=== PATIENT | male | born 1950 | race Caucasian/White ===

== ENCOUNTER 2021-10-27 12:53 | Inpatient (IN) | payer MEDICARE, BC ==
[2021-10-27] MEDS ORDERED: SODIUM CHLORIDE 0.9% 1,000 ML IV STA ×2 (14:18→16:52)
[2021-10-27] MEDS ORDERED: ONDANSETRON 4 MG/2 ML VIAL IVP STA (14:18)
[2021-10-27] MEDS ORDERED: MORPHINE SULFATE 4 MG/ML SYRINGE IVP STA (14:18)
[2021-10-27 15:05] LABS: Basophils % (A) 0 %; Eosinophils # (A) 0.1 k/uL (0-0.7); Eosinophils % (A) 1 %; HCT 42.9 % (39.0-53.0); HGB 13.9 gm/dL (13.0-17.5); Lymphocytes # (A) 0.6 k/uL (1.0-4.8); Lymphocytes % (A) 4 %; MCH 31.9 pg (25.0-35.0); MCHC 32.4 g/dL (31.0-37.0); MCV 98.5 fL (80.0-100.0); Mean Platelet Volume 7.1; Monocytes # (A) 0.3 k/uL (0-1.0); Monocytes % (A) 3 %; Neutrophils # (A) 11.9 k/uL (1.3-7.7); Neutrophils % (A) 91 %; Platelet Count 217 k/uL (150-450); RBC 4.36 m/uL (4.30-5.90); RDW 12.2 % (11.5-15.5); WBC 13.1 k/uL (3.8-10.6)
[2021-10-27 15:19] LABS: ALT 13 U/L (4-49); AST 19 U/L (17-59); African American GFR (CKD) >90 (>60 ml/min/1.73 sqM); Albumin 4.2 g/dL (3.5-5.0); Alkaline Phosphatase 61 U/L (38-126); Amylase 35 U/L (30-110); Anion Gap 6 mmol/L; Blood Urea Nitrogen 18 mg/dL (9-20); Carbon Dioxide 32 mmol/L (22-30); Chloride 96 mmol/L (98-107); Glucose 99 mg/dL (74-99); Lipase 28 U/L (23-300); Non-African American GFR(CKD) 79 (>60 ml/min/1.73 sqM); Potassium 4.1 mmol/L (3.5-5.1); Sodium 134 mmol/L (137-145); Total Bilirubin 1.1 mg/dL (0.2-1.3); Total Protein 7.5 g/dL (6.3-8.2)
[2021-10-27 15:27] LABS: INR 0.9 (<1.2); Partial Thromboplastin Time 26.2 sec (22.0-30.0); Prothrombin Time 10.2 sec (9.0-12.0)
[2021-10-27 15:27] LABS: Appearance,Urine Clear (Clear); Bilirubin,Urine Negative (Negative); Blood,Urine Trace (Negative); Color,Urine Yellow; Glucose,Urine (UA) Negative (Negative); Ketones,Urine 1+ (Negative); Leukocyte Esterase,Urine Negative (Negative); Mucus,Urine Rare /hpf; Nitrite,Urine Negative (Negative); PH, Urine 6.5 (5.0-8.0); Protein,Urine Trace (Negative); RBC,Urine 4 /hpf (0-5); Specific Gravity,Urine 1.019 (1.001-1.035); Squamous Epithelial Cell,Urine <1 /hpf (0-4); WBC,Urine 2 /hpf (0-5)
--- NOTE | 2021-10-27 16:08 | CT ---
EXAMINATION TYPE: CT abdomen pelvis w con DATE OF EXAM: 10/27/2021 COMPARISON: None HISTORY: lower anterior abdominal pain CT DLP: 761.2 mGycm Automated exposure control for dose reduction was used. CONTRAST: Performed with IV Contrast, patient injected with 100 mL of Isovue 300. Images obtained from the diaphragm to the floor of the pelvis with IV contrast. There is some interstitial infiltrate and atelectasis at the lung bases. Heart is top normal in size. No pericardial effusion. No pleural effusion. Liver and gallbladder appear intact. Spleen is intact. There is no pancreatic mass. The stomach is in tact. There is dilated small bowel loop with fluid level in the upper abdomen. Small bowel measures u p to 3.3 cm. There is no adrenal mass. Kidneys show satisfactory contrast opacification. There is no hydronephrosi s. Delayed images show normal renal excretion. Distal small bowel is not dilated. Bladder distends sm oothly. There is no inguinal hernia. No free fluid in the pelvis. No pelvic mass. There is no retrope ritoneal adenopathy. There is no mesenteric edema. No ascites or free air. No bowel obstruction. Appendix not clearly seen . No sign of thickened appendix. Lumbar vertebrae have normal alignment. There is narrowing at L4-5 and L5-S1 with spur formation. No compression fracture. The bony pelvis is intact. Hip joints are intact. IMPRESSION: Dilated proximal small bowel suggestive of partial mechanical obstruction or small bowel ileus. Trans ition point not seen.
--- NOTE | 2021-10-27 16:53 | ED ---
General Adult HPI - General Chief complaint: Abdominal Pain Stated complaint: vomiting, abd pain Time Seen by Provider: 10/27/21 14:05 Source: patient, RN notes reviewed, old records reviewed Mode of arrival: ambulatory Limitations: no limitations - History of Present Illness Initial comments: Patient is a 71-year-old male with past medical history relatively unremarkable except for hernia surgery repair presents to the emergency department complainin g of a 2 to three-day history of worsening abdominal distention and pain. States he has stopped passing gas. States he had a normal bowel movement 1-2 days ago, but nothing since. Denies any nausea or vomiting. Denies any chest pain, shortness of breath. Denies any fevers, chills, cough. States the pain is relatively diffuse. Denies any history of alcohol abuse or drug abuse. Does endorse smoking marijuana occasionally. His no other acute complaints at this time. Describes the pain as an achy, distended feeling. - Related Data Home Medications Medication Instructions Recorded Confirmed Escitalopram [Lexapro] 10 mg PO HS 10/27/21 10/27/21 Allergies Allergy/AdvReac Type Severity Reaction Status Date / Time No Known Allergies Allergy Verified 10/27/21 16:54 Review of Systems ROS Statement: Those systems with pertinent positive or pertinent negative responses have been documented in the HPI. Review of Systems: CONST: Denies fever EYES: Denies blurry vision ENT: Denies nasal congestion C/V: Denies Chest pain RESP: Denies shortness of breath GI: Endorses abdominal pain. : Denies dysuria SKIN: Denies rash. MSK: Denies joint pain. NEURO: Denies headache ROS Other: All systems not noted in ROS Statement are negative. Past Medical History Past Medical History: Hyperlipidemia History of Any Multi-Drug Resistant Organisms: None Reported Additional Past Surgical History / Comment(s): head and ache Past Psychological History: Anxiety Smoking Status: Never smoker Past Alcohol Use History: None Reported Past Drug Use History: None Reported General Exam - General Exam Comments Initial Comments: General: Presents in mild distress secondary to abdominal discomfort. HEAD: Normal with no signs of head trauma. EYES: PERRLA, EOMI, conjunctiva normal, no discharge. ENT: Hearing grossly intact, normal oropharynx. RESPIRATORY: Clear breath sounds bilaterally. No wheezes, rales, or rhonchi. C/V: Regular rate and rhythm. S1 and S2 auscultated, no edema, peripheral pulses 2+ and intact throughout ABD: Abdomen is diffusely distended. Mildly tender to palpation. No guarding. No peritoneal signs. No fluid wave. No rebound tenderness.. EXT: Normal range of motion, no obvious deformity SKIN: No rashes or lesions observed on exposed skin. NEURO: Alert and oriented 4. Limitations: no limitations Course Vital Signs 10/27/21 10/27/21 12:55 17:33 Temperature 98.1 F Pulse Rate 86 78 Respiratory 16 16 Rate Blood Pressure 144/83 125/63 O2 Sat by Pulse 96 96 Oximetry Medical Decision Making - Medical Decision Making Based on the patient's presentation and physical exam, I'm concerned for p ossible intra-abdominal process for his current symptoms, including small bowel obstruction. We will obtain CT imaging as well as abdominal laboratory studies. He'll be given analgesia and IV fluids. He was in agreement this plan. Laboratory studies were remarkable for mild leukocytosis of 13. Remainder the labs are relatively unremarkable. Lactic acid is within normal limits. CT imaging of the abdomen and pelvis reveals signs concerning for possible partial mechanical bowel obstruction or small bowel ileus. On reevaluation, I discussed with the patient regarding his findings. I consu lted Dr. Espino, who was in agreement with admission. Requested he be admitted to medicine and he'll be consulted. Would like IV fluid hydration, nausea and pain control. NG tube will be placed in put on low intermittent suction. I discussed this with the patient and he was in agreement this plan. I discussed the case with the patient's admitting physician, Dr. Rosa who accepted the patient. Patient was made nothing by mouth.NG tube will be placed by nursing. - Lab Data Result diagrams: 10/27/21 14:57 10/27/21 14:57 Lab Results 10/27/21 10/27/21 10/27/21 Range/Units 14:57 14:57 14:57 WBC 13.1 H (3.8-10.6) k/uL RBC 4.36 (4.30-5.90) m/uL Hgb 13.9 (13.0-17.5) gm/dL Hct 42.9 (39.0-53.0) % MCV 98.5 (80.0-100.0) fL MCH 31.9 (25.0-35.0) pg MCHC 32.4 (31.0-37.0) g/dL RDW 12.2 (11.5-15.5) % Plt Count 217 (150-450) k/uL MPV 7.1 Neutrophils % 91 % Lymphocytes % 4 % Monocytes % 3 % Eosinophils % 1 % Basophils % 0 % Neutrophils # 11.9 H (1.3-7.7) k/uL Lymphocytes # 0.6 L (1.0-4.8) k/uL Monocytes # 0.3 (0-1.0) k/uL Eosinophils # 0.1 (0-0.7) k/uL Basophils # 0.0 (0-0.2) k/uL PT 10.2 (9.0-12.0) sec INR 0.9 (<1.2) APTT 26.2 (22.0-30.0) sec Sodium 134 L (137-145) mmol/L Potassium 4.1 (3.5-5.1) mmol/L Chloride 96 L (98-107) mmol/L Carbon Dioxide 32 H (22-30) mmol/L Anion Gap 6 mmol/L BUN 18 (9-20) mg/dL Creatinine 0.96 (0.66-1.25) mg/dL Est GFR (CKD-EPI)AfAm >90 (>60 ml/min/1.73 sqM) Est GFR (CKD-EPI)NonAf 79 (>60 ml/min/1.73 sqM) Glucose 99 (74-99) mg/dL Plasma Lactic Acid David (0.7-2.0) mmol/L Calcium 9.0 (8.4-10.2) mg/dL Total Bilirubin 1.1 (0.2-1.3) mg/dL AST 19 (17-59) U/L ALT 13 (4-49) U/L Alkaline Phosphatase 61 (38-126) U/L Total Protein 7.5 (6.3-8.2) g/dL Albumin 4.2 (3.5-5.0) g/dL Amylase 35 (30-110) U/L Lipase 28 (23-300) U/L Urine Color Urine Appearance (Clear) Urine pH (5.0-8.0) Ur Specific [place] (1.001-1.035) Urine Protein (Negative) Urine Glucose (UA) (Negative) Urine Ketones (Negative) Urine Blood (Negative) Urine Nitrite (Negative) Urine Bilirubin (Negative) Urine Urobilinogen (<2.0) mg/dL Ur Leukocyte Esterase (Negative) Urine RBC (0-5) /hpf Urine WBC (0-5) /hpf Ur Squamous Epith Cells (0-4) /hpf Urine Mucus (None) /hpf 10/27/21 10/27/21 Range/Units 14:57 15:08 WBC (3.8-10.6) k/uL RBC (4.30-5.90) m/uL Hgb (13.0-17.5) gm/dL Hct (39.0-53.0) % MCV (80.0-100.0) fL MCH (25.0-35.0) pg MCHC (31.0-37.0) g/dL RDW (11.5-15.5) % Plt Count (150-450) k/uL MPV Neutrophils % % Lymphocytes % % Monocytes % % Eosinophils % % Basophils % % Neutrophils # (1.3-7.7) k/uL Lymphocytes # (1.0-4.8) k/uL Monocytes # (0-1.0) k/uL Eosinophils # (0-0.7) k/uL Basophils # (0-0.2) k/uL PT (9.0-12.0) sec INR (<1.2) APTT (22.0-30.0) sec Sodium (137-145) mmol/L Potassium (3.5-5.1) mmol/L Chloride (98-107) mmol/L Carbon Dioxide (22-30) mmol/L Anion Gap mmol/L BUN (9-20) mg/dL Creatinine (0.66-1.25) mg/dL Est GFR (CKD-EPI)AfAm (>60 ml/min/1.73 sqM) Est GFR (CKD-EPI)NonAf (>60 ml/min/1.73 sqM) Glucose (74-99) mg/dL Plasma Lactic Acid David 0.9 (0.7-2.0) mmol/L Calcium (8.4-10.2) mg/dL Total Bilirubin (0.2-1.3) mg/dL AST (17-59) U/L ALT (4-49) U/L Alkaline Phosphatase (38-126) U/L Total Protein (6.3-8.2) g/dL Albumin (3.5-5.0) g/dL Amylase (30-110) U/L Lipase (23-300) U/L Urine Color Yellow Urine Appearance Clear (Clear) Urine pH 6.5 (5.0-8.0) Ur Specific [place] 1.019 (1.001-1.035) Urine Protein Trace H (Negative) Urine Glucose (UA) Negative (Negative) Urine Ketones 1+ H (Negative) Urine Blood Trace H (Negative) Urine Nitrite Negative (Negative) Urine Bilirubin Negative (Negative) Urine Urobilinogen 2.0 (<2.0) mg/dL Ur Leukocyte Esterase Negative (Negative) Urine RBC 4 (0-5) /hpf Urine WBC 2 (0-5) /hpf Ur Squamous Epith Cells <1 (0-4) /hpf Urine Mucus Rare H (None) /hpf Disposition Clinical Impression: Small bowel obstruction Disposition: ADMITTED IP TO THIS [facility] Condition: Stable Referrals: Kartik Rosa MD [Primary Care Provider] - 1-2 days Time of Disposition: 16:30
[2021-10-27] MEDS ORDERED: HYDROmorphone 0.5 MG/0.5 ML SYRINGE IVP STA (17:11)
[2021-10-27] MEDS ORDERED: NALOXONE 0.4 MG/ML 1 ML VIAL IV PRN (17:12)
[2021-10-27] MEDS ORDERED: ONDANSETRON 4 MG/2 ML VIAL IVP PRN (17:12)
--- NOTE | 2021-10-27 18:27 | XR ---
EXAMINATION TYPE: XR abdomen 1V DATE OF EXAM: 10/27/2021 COMPARISON: NONE HISTORY: Tube placed TECHNIQUE: 2 views supine FINDINGS: Bowel gas pattern is normal. There is no sign of free air. There is large bowel gas down to the rectum. There is nasogastric tube in the tip is at the superior gastric fundus. There is contras t in the urinary bladder and in the kidneys. IMPRESSION: Nonacute abdomen. Nasogastric tube is in the gastric fundus.
[2021-10-27] MEDS: MORPHINE SULFATE 4 MG/ML SYRINGE IV PRN (19:40)
[2021-10-27] MEDS: ESCITALOPRAM 10 MG TAB PO SCH (21:56)
[2021-10-28] MEDS: MORPHINE SULFATE 4 MG/ML SYRINGE IV PRN ×5 (00:18→21:35)
[2021-10-28] MEDS: HEPARIN SODIUM,PORCINE/PF 5,000 UNIT/0.5 ML SYRINGE SQ SCH ×4 (00:19→23:29)
[2021-10-28 09:14] LABS: Basophils # (A) 0.03 X 10*3/uL (0.00-0.10); Basophils % (A) 0.3 %; Eosinophils # (A) 0.01 X 10*3/uL (0.04-0.35); Eosinophils % (A) 0.1 %; HCT 40.2 % (39.6-50.0); HGB 12.6 g/dL (13.0-17.0); Immature Grans, Automated 0.3 %; Lymphocytes # (A) 0.64 X 10*3/uL (0.90-5.00); Lymphocytes % (A) 6.1 %; MCH 31.3 pg (27.0-32.0); MCHC 31.3 g/dL (32.0-37.0); Mean Platelet Volume 10.2 fL (9.5-12.2); Monocytes # (A) 0.51 X 10*3/uL (0.20-1.00); Monocytes % (A) 4.9 %; NRBC Per 100 WBC 0 /100 WBCS (0.0-0.0); Neutrophils # (A) 9.19 X 10*3/uL (1.80-7.70); Neutrophils % (A) 88.3 %; Platelet Count 226 X 10*3/uL (140-440); RBC 4.02 X 10*6/uL (4.40-5.60); RDW 12.7 % (11.5-14.5); WBC 10.41 X 10*3/uL (4.50-10.00)
[2021-10-28 09:17] LABS: African American GFR (CKD) 99.8 (60.0-200.0); Albumin 3.8 g/dL (3.8-4.9); Albumin/Globulin Ratio 1.46 (1.60-3.17); Anion Gap 14.3 mmol/L (10.00-18.00); BUN/Creat Ratio 15.01 Ratio (12.00-20.00); Blood Urea Nitrogen 13.1 mg/dL (9.0-27.0); Calcium 8.9 mg/dL (8.7-10.3); Carbon Dioxide 24.2 mmol/L (20.0-27.5); Globulin 2.6 g/dL (1.6-3.3); Non-African American GFR(CKD) 86.1 (60.0-200.0); Potassium 4.4 mmol/L (3.5-5.5); Total Bilirubin 0.8 mg/dL (0.30-1.20); Total Protein 6.4 g/dL (6.2-8.2)
--- NOTE | 2021-10-28 11:12 | P.HPIM ---
History of Present Illness H&P Date: 10/28/21 Chief Complaint: Abdominal pain 71-year-old male patient presented to the emergency room with worsening abdominal distention and pain over the past 2-3 days. Last bowel movement, which was normal, was noted to be 1-2 days ago and just prior to that he was having nausea and vomiting. States it's been several days since he passed gas last. Past medical history is noted be for hernia repair, otherwise unremarkable. Patient denied any blood in stool or coffee ground emesis. He doesn't denies any chest pain, pressure, shortness of breath or difficulty breathing. Initial laboratory results revealed a leukocytosis of 13.1, hemoglobin 13.9, hematocrit 42.9, platelet count 217. Chemistry reveals a sodium 134, potassium 4.1, AST 19, ELT of 13, RONAK of 18, creatinine 0.6, GFR 79, amylase 35, lipase 28. Vitals noted to be afebrile 98.1, pulse rate of 86, Strattera 16, blood pressure 144/83, maintaining oxygen saturation of 96% on room air. Review of Systems Constitutional: Reports fatigue Ears, nose, mouth and throat: Reports as per HPI Cardiovascular: Reports as per HPI Respiratory: Reports as per HPI Gastrointestinal: Reports abdominal pain, Reports bloating, Reports constipation, Reports loss of appetite, Reports nausea, Reports vomiting Genitourinary: Reports as per HPI Musculoskeletal: Reports as per HPI Integumentary: Reports as per HPI Neurological: Reports as per HPI Psychiatric: Reports as per HPI Endocrine: Reports as per HPI Hematologic/Lymphatic: Reports as per HPI Allergic/Immunologic: Reports as per HPI Past Medical History Past Medical History: Hyperlipidemia Additional Past Medical History / Comment(s): Hernia, Neck Cancer History of Any Multi-Drug Resistant Organisms: None Reported Additional Past Surgical History / Comment(s): head and ache radiation Past Psychological History: Anxiety Smoking Status: Never smoker Past Alcohol Use History: None Reported Past Drug Use History: None Reported Medications and Allergies Home Medications Medication Instructions Recorded Confirmed Type Escitalopram [Lexapro] 10 mg PO HS 10/27/21 10/27/21 History Allergies Allergy/AdvReac Type Severity Reaction Status Date / Time No Known Allergies Allergy Verified 10/27/21 16:54 Physical Exam Vitals: Vital Signs Temp Pulse Pulse Resp BP BP Pulse Ox 10/28/21 07:26 98.4 F 78 18 114/64 93 L 10/28/21 02:24 98.6 F 75 17 121/62 94 L 10/27/21 19:28 99.4 F 77 16 130/68 95 10/27/21 17:33 78 16 125/63 96 10/27/21 12:55 98.1 F 86 16 144/83 96 Intake and Output 10/27/21 10/28/21 10/28/21 22:59 06:59 14:59 Intake Total 1200 Output Total 0 Balance 1200 Intake: Intake, IV Titration 1200 Amount Sodium Chloride 0.9% 1, 1200 000 ml @ 100 mls/hr IV . Q10H STA Rx#:[id number] Output: Gastric Drainage 0 Other: Voiding Method Urinal Urinal # Voids 2 Weight 77.111 kg GENERAL: Well-appearing, well-nourished and in no acute distress. HEAD: Atraumatic, normocephalic. EYES: Pupils equal round and reactive to light, extraocular movements intact, sclera anicteric, conjunctiva are normal. ENT:nares patent, oropharynx clear without exudates. Moist mucous membranes. NECK: Normal range of motion, supple without lymphadenopathy or JVD, no thyromegaly LUNGS: Breath sounds clear to auscultation bilaterally and equal. No wheezes rales or rhonchi. HEART: Regular rate and rhythm without murmurs, rubs or gallops.S1S2 Normal ABDOMEN: Soft, mild to moderately tender to palpation in bilateral lower qu adrants, normoactive bowel sounds. No guarding, no rebound. No masses appreciated. Nasogastric tube and right [place] (clamped) EXTREMITIES: Normal range of motion, no pitting or edema. No clubbing or cyanosis. NEUROLOGICAL: Cranial nerves II through XII grossly intact. Normal speech, normal gait. PSYCH: Normal mood, normal affect. SKIN: Warm, Dry, normal turgor, no rashes or lesions noted. Results CBC & Chem 7: 10/28/21 06:07 10/28/21 06:10 Labs: Abnormal Lab Results - Last 24 Hours (Table) 10/27/21 10/27/21 10/27/21 Range/Units 14:57 14:57 15:08 WBC 13.1 H (3.8-10.6) k/uL RBC (4.40-5.60) X 10*6/uL Hgb (13.0-17.0) g/dL MCV (80.0-97.0) fL MCHC (32.0-37.0) g/dL Neutrophils # 11.9 H (1.3-7.7) k/uL Lymphocytes # 0.6 L (1.0-4.8) k/uL Eosinophils # (0.04-0.35) X 10*3/uL Sodium 134 L (137-145) mmol/L Chloride 96 L (98-107) mmol/L Carbon Dioxide 32 H (22-30) mmol/L AST (14-35) U/L Albumin/Globulin Ratio (1.60-3.17) g/dL Urine Protein Trace H (Negative) Urine Ketones 1+ H (Negative) Urine Blood Trace H (Negative) Urine Mucus Rare H (None) /hpf 10/28/21 10/28/21 Range/Units 06:07 06:10 WBC 10.41 H (3.8-10.6) k/uL RBC 4.02 L (4.40-5.60) X 10*6/uL Hgb 12.6 L (13.0-17.0) g/dL MCV 100.0 H (80.0-97.0) fL MCHC 31.3 L (32.0-37.0) g/dL Neutrophils # 9.19 H (1.3-7.7) k/uL Lymphocytes # 0.64 L (1.0-4.8) k/uL Eosinophils # 0.01 L (0.04-0.35) X 10*3/uL Sodium (137-145) mmol/L Chloride (98-107) mmol/L Carbon Dioxide (22-30) mmol/L AST 12 L (14-35) U/L Albumin/Globulin Ratio 1.46 L (1.60-3.17) g/dL Urine Protein (Negative) Urine Ketones (Negative) Urine Blood (Negative) Urine Mucus (None) /hpf Thrombosis Risk Factor Assmnt - Choose All That Apply Any of the Below Risk Factors Present?: No Other Risk Factors: Yes Each Risk Factor Represents 2 Points: Age 61-74 years Other congenital or acquired thrombophilia - If yes, enter type in comment: No Thrombosis Risk Factor Assessment Total Risk Factor Score: 2 Thrombosis Risk Factor Assessment Level: Low Risk Assessment and Plan (1) Abdominal pain Current Visit: Yes Status: Acute Code(s): R10.9 - UNSPECIFIED ABDOMINAL PAIN SNOMED Code(s): 58395146 (2) Abdominal distention Current Visit: Yes Status: Acute Code(s): R14.0 - ABDOMINAL DISTENSION (GASEOUS) SNOMED Code(s): 80703437 (3) Anxiety Current Visit: Yes Status: Acute Code(s): F41.9 - ANXIETY DISORDER, UNSPECIFIED SNOMED Code(s): 52197932 (4) Small bowel obstruction Current Visit: Yes Status: Acute Code(s): K56.609 - UNSP INTESTNL OBST, UNSP TO PARTIAL VERSUS COMPLETE OBST SNOMED Code(s): 829302100 Plan: Continue with current medications as prescribed IV maintenance fluid to be lactated Ringer's at 75 mL an hour Pain control with morphine DVT prophylaxis with pneumatic stockings and subcu heparin every 8 hours Protonix for PPI coverage Continue with NG tube for decompression of stomach We'll order labs for tomorrow We will wait for surgery recommendations We'll continue to follow closely and reassess again tomorrow Time with Patient: Greater than 30
[2021-10-28] MEDS: PANTOPRAZOLE 40 MG/10 ML VIAL IVP SCH (11:52)
[2021-10-28] MEDS: LACTATED RINGERS 1,000 ML IV SCH ×2 (11:52→23:30)
--- NOTE | 2021-10-28 14:28 | P.GSCN ---
History of Present Illness Consult date: 10/28/21 Reason for Consult: Abdominal pain, nausea and vomiting, ileus versus small bowel obstruction on CT History of present illness: Patient is a 71-year-old gentleman who presented to [facility] emergency department 10/27/2021 with chief complaint of 48 hours of progressive abdominal pain is started towards the mid abdomen and grew progressively worse in the right lower quadrant. Symptoms were accompanied by nausea and multiple bouts of nonbloody emesis. He denies associated fever or chills, no reported chest pain or shortness of breath. He hasn't had similar previous symptoms in the past. He does admit to intermittent issues with positional dizziness and lightheadedness over the past several months. No history of diabetes mellitus, he is not maintained on diuretics. 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 He suffered what was sounds like a musculoskeletal strain injury around a month ago, he admits to some searing abdominal pain associated with lifting very heavy object that's gradually impro holley. Surgical history is significant for an open left inguinal hernia repair some years ago. 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 Colonoscopy was performed somewhere around 3 years ago recalls that some manner of polyp was retrieved. A computed tomography scan of the abdomen and pelvis was obtained in the ER, images and report were reviewed. There is mild distention of the proximal small bowel, relative decompression of distal small bowel. No free air, no free fluid. There is scant stool visualized throughout the colon. No transition point is seen, appendix is not visualized. No evidence of recurrent inguinal hernia or ventral hernia. Nasogastric tube was subsequently placed and an abdominal flat plate x-ray obtained and images and report reviewed. NG tube appears to be in the gastric fundus and there is gaseous distention of the proximal colon seen at this point. Laboratory studies showed a mild leukocyto sis at 13.1 thousand which is improved to 10.4 today. Hemoglobin was 13.9, platelet count 217. MCV and MCH indices within normal limits as was RDW. Serum electrolyte analysis on presentation showed trivial hyponatremia at 134, potassium normal at 4.1, creatinine 0.96, glucose of 99. Hepatic function panel was normal and all counts including normal amylase and lipase. Urinalysis shows evidence of mild dehydration with 1+ ketones, no signs of UTI. Patient's been hemodynamically stable and afebrile overnight. He's had minimal output from the nasogastric tube since placement, today A he feels some slight improvement from his symptoms compared to presentation. He starting to experience some flatus, no bowel movement yet. Starting to feel thirsty. Has been ambulatory. His received IV fluids since admission, has not been placed on antibiotics. The lower lung bravo on CT scan did show some mild interstitial infiltrates of the lower lung bravo bilaterally but no discrete consolidation. Review of Systems All systems: negative Past Medical History Past Medical History: Hyperlipidemia Additional Past Medical History / Comment(s): Hernia, Neck Cancer History of Any Multi-Drug Resistant Organisms: None Reported Additional Past Surgical History / Comment(s): head and ache radiation Past Psychological History: Anxiety Smoking Status: Never smoker Past Alcohol Use History: None Reported Past Drug Use History: None Reported Medications and Allergies Home Medications Medication Instructions Recorded Confirmed Type Escitalopram [Lexapro] 10 mg PO HS 10/27/21 10/27/21 History Allergies Allergy/AdvReac Type Severity Reaction Status Date / Time No Known Allergies Allergy Verified 10/27/21 16:54 Surgical - Exam Osteopathic Statement: *. No significant issues noted on an osteopathic structural exam other than those noted in the History and Physical/Consult. Vital Signs Temp Pulse Resp BP Pulse Ox 98.1 F 86 16 144/83 96 10/27/21 12:55 10/27/21 12:55 10/27/21 12:55 10/27/21 12:55 10/27/21 12:55 - General well developed, well nourished, no distress - Eyes PERRL, normal ocular movement - ENT normal pinna, normal nares, normal mucosa, no hearing loss - Respiratory normal expansion, normal respiratory effort, clear to auscultation - Cardiovascular Rhythm: regular - Abdomen Abdomen is soft, there is mild distention with tympany, mild diffuse tenderness to palpation worse along the lower abdomen and right lateral abdomen. No guarding or rebound Abdomen: soft Hernia: none - Integumentary no rash, no growths - Neurologic normal coordination, normal sensation - Psychiatric oriented to time, oriented to person, oriented to place, speech is normal, memory intact Results - Labs 10/28/21 06:07 10/28/21 06:10 Abnormal Lab Results - Last 24 Hours (Table) 10/27/21 10/27/21 10/27/21 Range/Units 14:57 14:57 15:08 WBC 13.1 H (3.8-10.6) k/uL RBC (4.40-5.60) X 10*6/uL Hgb (13.0-17.0) g/dL MCV (80.0-97.0) fL MCHC (32.0-37.0) g/dL Neutrophils # 11.9 H (1.3-7.7) k/uL Lymphocytes # 0.6 L (1.0-4.8) k/uL Eosinophils # (0.04-0.35) X 10*3/uL Sodium 134 L (137-145) mmol/L Chloride 96 L (98-107) mmol/L Carbon Dioxide 32 H (22-30) mmol/L AST (14-35) U/L Albumin/Globulin Ratio (1.60-3.17) g/dL Urine Protein Trace H (Negative) Urine Ketones 1+ H (Negative) Urine Blood Trace H (Negative) Urine Mucus Rare H (None) /hpf 10/28/21 10/28/21 Range/Units 06:07 06:10 WBC 10.41 H (3.8-10.6) k/uL RBC 4.02 L (4.40-5.60) X 10*6/uL Hgb 12.6 L (13.0-17.0) g/dL MCV 100.0 H (80.0-97.0) fL MCHC 31.3 L (32.0-37.0) g/dL Neutrophils # 9.19 H (1.3-7.7) k/uL Lymphocytes # 0.64 L (1.0-4.8) k/uL Eosinophils # 0.01 L (0.04-0.35) X 10*3/uL Sodium (137-145) mmol/L Chloride (98-107) mmol/L Carbon Dioxide (22-30) mmol/L AST 12 L (14-35) U/L Albumin/Globulin Ratio 1.46 L (1.60-3.17) g/dL Urine Protein (Negative) Urine Ketones (Negative) Urine Blood (Negative) Urine Mucus (None) /hpf Diabetes panel 10/27/21 10/28/21 Range/Units 14:57 06:10 Sodium 134 L 137 (137-145) mmol/L Potassium 4.1 4.4 (3.5-5.1) mmol/L Chloride 96 L 99 (98-107) mmol/L Carbon Dioxide 32 H 24.2 (22-30) mmol/L BUN 18 13.1 (9-20) mg/dL Creatinine 0.96 0.9 (0.66-1.25) mg/dL Glucose 99 80 (74-99) mg/dL Calcium 9.0 8.9 (8.4-10.2) mg/dL AST 19 12 L (17-59) U/L ALT 13 11 (4-49) U/L Alkaline Phosphatase 61 56 (38-126) U/L Total Protein 7.5 6.4 (6.3-8.2) g/dL Albumin 4.2 3.8 (3.5-5.0) g/dL Calcium panel 10/27/21 10/28/21 Range/Units 14:57 06:10 Calcium 9.0 8.9 (8.4-10.2) mg/dL Albumin 4.2 3.8 (3.5-5.0) g/dL Pituitary panel 10/27/21 10/28/21 Range/Units 14:57 06:10 Sodium 134 L 137 (137-145) mmol/L Potassium 4.1 4.4 (3.5-5.1) mmol/L Chloride 96 L 99 (98-107) mmol/L Carbon Dioxide 32 H 24.2 (22-30) mmol/L BUN 18 13.1 (9-20) mg/dL Creatinine 0.96 0.9 (0.66-1.25) mg/dL Glucose 99 80 (74-99) mg/dL Calcium 9.0 8.9 (8.4-10.2) mg/dL Adrenal panel 10/27/21 10/28/21 Range/Units 14:57 06:10 Sodium 134 L 137 (137-145) mmol/L Potassium 4.1 4.4 (3.5-5.1) mmol/L Chloride 96 L 99 (98-107) mmol/L Carbon Dioxide 32 H 24.2 (22-30) mmol/L BUN 18 13.1 (9-20) mg/dL Creatinine 0.96 0.9 (0.66-1.25) mg/dL Glucose 99 80 (74-99) mg/dL Calcium 9.0 8.9 (8.4-10.2) mg/dL Total Bilirubin 1.1 0.80 (0.2-1.3) mg/dL AST 19 12 L (17-59) U/L ALT 13 11 (4-49) U/L Alkaline Phosphatase 61 56 (38-126) U/L Total Protein 7.5 6.4 (6.3-8.2) g/dL Albumin 4.2 3.8 (3.5-5.0) g/dL - Imaging Abdominal x-ray: report reviewed, image reviewed CT scan - abdomen: report reviewed, image reviewed CT scan - pelvis: report reviewed, image reviewed Assessment and Plan Assessment: 71-year-old gentleman with presentation consistent with either partial small bowel obstruction or more likely ileus in the setting of a degree of presenting dehydration. His symptoms have improved somewhat overnight with IV fluids. Starting to pass flatus, there was air seen in the proximal colon on his most recent abdominal imaging. His presenting symptoms could be construed as an early appendicitis but appendix was not visualized on CT and again he has shown improvement overnight with IV fluids alone, his mild leukocytosis is normalizing. History of head and neck cancer treated with chemotherapy and radiation some years ago, up-to-date with respect to screening colonoscopy. Plan: Patient's nasogastric tube isn't really yielding much in terms of output, will ask that a be advanced 5 cm, flushed with air and reconnected to suction. Continue with aspiration precautions with head of the bed at 30, ambulate 3 times a day and when necessary. Okay for ice chips today. If he shows c ontinued improvement by tomorrow morning we can think about advancing to clears and discontinuing nasogastric tube. If he shows interval decline will anticipate a repeat computed tomography scan with oral and IV contrast to assess for persistent obstruction and look closer for interval evidence of appendicitis. Time with Patient: Greater than 30
[2021-10-28] MEDS: ESCITALOPRAM 10 MG TAB PO SCH (20:53)
[2021-10-29] MEDS: MORPHINE SULFATE 4 MG/ML SYRINGE IV PRN (02:30)
[2021-10-29] MEDS: PANTOPRAZOLE 40 MG/10 ML VIAL IVP SCH (11:08)
[2021-10-29] MEDS: HEPARIN SODIUM,PORCINE/PF 5,000 UNIT/0.5 ML SYRINGE SQ SCH ×3 (11:08→23:03)
[2021-10-29] MEDS ORDERED: ACETAMINOPHEN IV (For NPO) 1,000 MG in EMPTY BAG 1 BAG IVPB PRN (11:17)
--- NOTE | 2021-10-29 11:22 | P.PN ---
Subjective Progress Note Date: 10/29/21 H&P Date: 10/28/21 Chief Complaint: Abdominal pain 71-year-old male patient presented to the emergency room with worsening abdominal distention and pain over the past 2-3 days. Last bowel movement, which was normal, was noted to be 1-2 days ago and just prior to that he was having nausea and vomiting. States it's been several days since he passed gas l ast. Past medical history is noted be for hernia repair, otherwise unremarkable. Patient denied any blood in stool or coffee ground emesis. He doesn't denies any chest pain, pressure, shortness of breath or difficulty breathing. Initial laboratory results revealed a leukocytosis of 13.1, hemoglo bin 13.9, hematocrit 42.9, platelet count 217. Chemistry reveals a sodium 134, potassium 4.1, AST 19, ELT of 13, RONAK of 18, creatinine 0.6, GFR 79, amylase 35, lipase 28. Vitals noted to be afebrile 98.1, pulse rate of 86, Strattera 16, blood pressure 144/83, maintaining oxygen saturation of 96% on room air. 10/29/2021 NG with minimal output. Tolerating ice chest with no nausea or vomiting. Passing flatus. Ambulating in hallway . Receiving morphine sulfate IV push for pain management, last received coconut jelly roller hours. Denies chest pain palpitations or shortness of breath.Maintaining O2 sats in the 90s on room air. Objective - Vital Signs Vital signs: Vital Signs Temp 98.4 F 10/29/21 02:20 Pulse 72 10/29/21 02:20 Resp 16 10/29/21 02:20 BP 165/80 10/29/21 02:20 Pulse Ox 94 L 10/29/21 02:20 Intake & Output 10/28/21 10/29/21 10/29/21 18:59 06:59 18:59 Other: Voiding Method Urinal Urinal # Voids 3 - Exam GENERAL: Alert and oriented 3, sitting up in bed, no acute distress. HEAD: Atraumatic, normocephalic. EYES: Pupils equal round and reactive to light, extraocular movements intact, sclera anicteric, conjunctiva are normal. ENT:nares patent, oropharynx clear without exudates. Moist mucous membranes.NGT present. NECK: supple, no JVD LUNGS: Breath sounds clear to auscultation bilaterally and equal. No wheezes rales or rhonchi. HEART: Regular rate and rhythm without murmurs, rubs or gallops.S1S2 Normal ABDOMEN: Soft, distended, mild diffuse tenderness, hypoactive bowel sounds. No guarding, no rebound. No masses appreciated. EXTREMITIES: Normal range of motion, no pitting or edema. No clubbing or cyanosis. NEUROLOGICAL: Cranial nerves II through XII grossly intact. Normal speech, normal gait SKIN: Warm, Dry, normal turgor, no rashes noted. - Labs CBC & Chem 7: 10/28/21 06:07 10/28/21 06:10 Assessment and Plan Assessment: Abdominal pain, Partial small bowel obstruction, possibly ileus. Dehydration Leukocytosis, improving History of neck cancer, s/p chemotherapy and radiation Anxiety Plan: Continue on current medication regime ,monitoring and symptomatic treatment. IV fluid hydration. Pain management; morphine sulfate discontinued, ofirmev ordered. GI prophylaxis with PPI, DVT prophylaxis with heparin subcu/pneumatic stockings. NG tube/diet advancement as per surgery. Increase ambulation as tolerated. Aggressive pulmonary toileting with incentive spirometer ordered. The impression and plan of care has been dictated as directed. : I performed a history and examination of this patient, discussed the same with the dictator. I agree with the dictator's note ,documented as a scribe. Any additional findings or plans will be noted.
[2021-10-29 12:58] LABS: Basophils % (A) 0 %; Eosinophils # (A) 0.1 k/uL (0-0.7); Eosinophils % (A) 2 %; HCT 38.8 % (39.0-53.0); HGB 12.4 gm/dL (13.0-17.5); Lymphocytes # (A) 0.6 k/uL (1.0-4.8); Lymphocytes % (A) 8 %; MCH 32.2 pg (25.0-35.0); MCHC 31.9 g/dL (31.0-37.0); MCV 100.9 fL (80.0-100.0); Mean Platelet Volume 8.8; Monocytes # (A) 0.4 k/uL (0-1.0); Monocytes % (A) 5 %; Neutrophils # (A) 5.9 k/uL (1.3-7.7); Neutrophils % (A) 83 %; Platelet Count 226 k/uL (150-450); RBC 3.84 m/uL (4.30-5.90); RDW 12.7 % (11.5-15.5); WBC 7.1 k/uL (3.8-10.6)
[2021-10-29 13:02] LABS: ALT 10 U/L (4-49); AST 17 U/L (17-59); African American GFR (CKD) >90 (>60 ml/min/1.73 sqM); Albumin 3.2 g/dL (3.5-5.0); Alkaline Phosphatase 58 U/L (38-126); Anion Gap 7 mmol/L; Blood Urea Nitrogen 14 mg/dL (9-20); Calcium 8.6 mg/dL (8.4-10.2); Carbon Dioxide 30 mmol/L (22-30); Chloride 97 mmol/L (98-107); Globulin 3.1 g/dL; Glucose 85 mg/dL (74-99); Non-African American GFR(CKD) 88 (>60 ml/min/1.73 sqM); Potassium 4.2 mmol/L (3.5-5.1); Sodium 134 mmol/L (137-145); Total Bilirubin 1.1 mg/dL (0.2-1.3); Total Protein 6.3 g/dL (6.3-8.2)
--- NOTE | 2021-10-29 14:47 | P.PN ---
Subjective Progress Note Date: 10/29/21 Principal diagnosis: Ileus versus partial small bowel obstruction, right lower quadrant abdominal pain Patient seen and examined at bedside. No overnight events. Feeling better t arian than yesterday. Continues with positive flatus, no bowel movement yet. Feeling hungry. Right lower quadrant pains are improving. Remained hemodynamically stable and afebrile overnight. Leukocytosis has normalized. Patient is not on antibiotics. Ambulatory without issue. Laboratory studies today are unremarkable. Objective - Vital Signs Vital signs: Vital Signs Temp 98.5 F 10/29/21 14:00 Pulse 77 10/29/21 14:00 Resp 19 10/29/21 14:00 BP 161/79 10/29/21 14:00 Pulse Ox 95 10/29/21 14:00 Intake & Output 10/28/21 10/29/21 10/29/21 18:59 06:59 18:59 Output Total 150 Balance -150 Output: Urine 150 Other: Voiding Method Urinal Urinal Urinal # Voids 3 - Constitutional General appearance: Present: average body habitus, no acute distress - EENT Eyes: Present: PERRLA ENT: Present: NA/AT - Respiratory Respiratory: bilateral: CTA - Cardiovascular Rhythm: regular - Gastrointestinal Gastrointestinal Comment(s): Abdomen is soft, nontender palpation, no guarding rebound or distention. No appreciable ventral hernia. - Neurologic Neurologic: Present: CNII-XII intact - Psychiatric Psychiatric: Present: A&O x's 3, appropriate affect, intact judgment & insight - Labs CBC & Chem 7: 10/29/21 04:56 10/29/21 04:56 Labs: Abnormal Lab Results - Last 24 Hours (Table) 10/29/21 10/29/21 Range/Units 04:56 04:56 RBC 3.84 L (4.30-5.90) m/uL Hgb 12.4 L (13.0-17.5) gm/dL Hct 38.8 L (39.0-53.0) % MCV 100.9 H (80.0-100.0) fL Lymphocytes # 0.6 L (1.0-4.8) k/uL Sodium 134 L (137-145) mmol/L Chloride 97 L (98-107) mmol/L Albumin 3.2 L (3.5-5.0) g/dL Assessment and Plan Assessment: 71-year-old gentleman with presentation consistent with either partial small bowel obstruction or more likely ileus in the setting of a degree of presenting dehydration. His symptoms have improved somewhat overnight with IV fluids. Starting to pass flatus, there was air seen in the proximal colon on his most recent abdominal imaging. Doubt appendicitis at present. History of head and neck cancer treated with chemotherapy and radiation some years ago, up-to-date with respect to screening colonoscopy. Plan: Nasogastric tube was removed at bedside, yielded some 50 mL or less since yesterday. Okay to start clear liquids today. He has continued improvement overnight and some bowel function he can be advanced to a regular diet as tolerated tomorrow. If it is interval decline will anticipate repeat CT abdomen and pelvis with oral and IV contrast. May be ready for discharge home tomorrow afternoon at the earliest. Time with Patient: Greater than 30
[2021-10-29] MEDS: ESCITALOPRAM 10 MG TAB PO SCH (23:03)
[2021-10-30] MEDS: LACTATED RINGERS 1,000 ML IV SCH ×2 (00:28→06:45)
[2021-10-30] MEDS: HEPARIN SODIUM,PORCINE/PF 5,000 UNIT/0.5 ML SYRINGE SQ SCH (08:37)
[2021-10-30] MEDS: PANTOPRAZOLE 40 MG/10 ML VIAL IVP SCH (08:37)
[2021-10-30] MEDS ORDERED: bisacodyL 10 MG SUPP RECTAL STA (12:47)
--- NOTE | 2021-10-30 12:47 | P.PN ---
Subjective Progress Note Date: 10/30/21 Principal diagnosis: Ileus versus partial small bowel obstruction, right lower quadrant abdominal pain Patient seen and examined at bedside. Feeling better today than yesterday. Admits to some mild waxing and waning nausea, has been tolerating regular diet. Right lower quadrant pains are nearly resolved. As been ambulatory, admits to flatus, no bowel movement yet but feels like it's coming. He denies fever or chills. He's been hemodynamically stable and afebrile overnight. Objective - Vital Signs Vital signs: Vital Signs Temp 98.3 F 10/30/21 08:00 Pulse 58 L 10/30/21 08:00 Resp 17 10/30/21 08:00 BP 162/84 10/30/21 08:00 Pulse Ox 96 10/30/21 08:00 Intake & Output 10/29/21 10/30/21 10/30/21 18:59 06:59 18:59 Intake Total 400 600 Output Total 350 900 Balance 50 -900 600 Intake: Intake, IV Titration 600 Amount Lactated Ringers 1,000 ml 600 @ 75 mls/hr IV .[id number] [facility] Rx#:[id number] Oral 400 Output: Urine 350 900 Other: Voiding Method Urinal Toilet Urinal - Constitutional General appearance: Present: average body habitus, no acute distress - EENT Eyes: Present: EOMI, PERRLA ENT: Present: NA/AT - Respiratory Respiratory: bilateral: CTA - Cardiovascular Rhythm: regular - Gastrointestinal Gastrointestinal Comment(s): Abdomen is soft, nontender to palpation, no guarding rebound or distention. General gastrointestinal: Present: normal bowel sounds - Neurologic Neurologic: Present: CNII-XII intact - Psychiatric Psychiatric: Present: A&O x's 3 - Labs CBC & Chem 7: 10/29/21 04:56 10/29/21 04:56 Labs: Abnormal Lab Results - Last 24 Hours (Table) 10/29/21 10/29/21 Range/Units 04:56 04:56 RBC 3.84 L (4.30-5.90) m/uL Hgb 12.4 L (13.0-17.5) gm/dL Hct 38.8 L (39.0-53.0) % MCV 100.9 H (80.0-100.0) fL Lymphocytes # 0.6 L (1.0-4.8) k/uL Sodium 134 L (137-145) mmol/L Chloride 97 L (98-107) mmol/L Albumin 3.2 L (3.5-5.0) g/dL Assessment and Plan Assessment: 71-year-old gentleman with presentation consistent with either partial small bowel obstruction or more likely ileus in the setting of a degree of presenting dehydration. Clinically resolving no no bowel movement yet. There was air seen in the proximal colon on his most recent abdominal imaging. Doubt appendicitis at present. History of head and neck cancer treated with chemotherapy and radiation some years ago, up-to-date with respect to screening colonoscopy. Plan: Dulcolax suppository this afternoon. If he continues to do well with regular diet without abdominal pain, nausea, or vomiting I think it will be okay for discharge home from a surgical standpoint by late this afternoon or early this evening. He was advised that her symptoms return after discharge home and to come back to the hospital. I suspect is presenting issue related to an ileus in the setting of acute dehydration. Time with Patient: Greater than 30
[2021-10-30 13:32] VITALS: BP 162/75; PULSE 86; RESP 16; TEMP 98.2
--- NOTE | 2021-10-30 14:20 | P.DS ---
Providers Date of admission: 10/27/21 17:12 Expected date of discharge: 10/30/21 Attending physician: Kartik Rosa Consults: 10/27/21 17:12 Consult Physician Routine Consulting Provider: Gabriel Espino Consult Reason/Comments: partial small bowel obstruction Do you want consulting provider notified?: Already Contacted Primary care physician: Kartik Rosa [place] [facility] Course: Final Diagnoses: Abdominal pain, Partial small bowel obstruction, possibly ileus. Dehydration Leukocytosis, improving History of neck cancer, s/p chemotherapy and radiation Anxiety Hospital course: This is a 71-year-old male patient presented to the emergency room with worsening abdominal distention and pain over the past 2-3 days. Last bowel movement, which was normal, was noted to be 1-2 days ago and just prior to that he was having nausea and vomiting. States it's been several days since he passed gas last. Past medical history is noted be for hernia repair, otherwise unremarkable. Patient denied any blood in stool or coffee ground emesis. He doesn't denies any chest pain, pressure, shortness of breath or difficulty breathing. Initial laboratory results revealed a leukocytosis of 13.1, hemoglobin 13.9, hematocrit 42.9, platelet count 217. Chemistry reveals a sodium 134, potassium 4.1, AST 19, ELT of 13, RONAK of 18, creatinine 0.6, GFR 79, amylase 35, lipase 28. Vitals noted to be afebrile 98.1, pulse rate of 86, Strattera 16, blood pressure 144/83, maintaining oxygen saturation of 96% on room air. 10/29/2021 NG with minimal output. Tolerating ice chest with no nausea or vomiting. Passing flatus. Ambulating in hallway . Receiving morphine sulfate IV push for pain management, last received courtesy car driver hours. Denies chest pain palpitations or shortness of breath.Maintaining O2 sats in the 90s on room air. 10/30/2021 NG discontinued yesterday, tolerating clear liquid diet with mild nausea vomiting or diarrhea. Scheduled for regular lunch. Passing flatus, no bowel movement. Ambulating, tolerating exertion well. Afebrile. Patient will be discharged home later today in a stable condition with guarded prognosis, pending tolerating advancement in diet, positive bowel movement, and final DC recommendations and clearance per surgery. - Exam GENERAL: Alert and oriented 3, sitting up in bed, no acute distress. LUNGS: Breath sounds clear to auscultation bilaterally and equal. No wheezes rales or rhonchi. HEART: Regular rate and rhythm without murmurs, rubs or gallops.S1S2 Normal ABDOMEN: Soft, distended, mild diffuse bilateral lower quadrant tenderness, hypoactive bowel sounds. No guarding, no rebound. No masses appreciated. NEUROLOGICAL: Cranial nerves II through XII grossly intact. The impression and plan of care has been dictated as directed. : I performed a history and examination of this patient, discussed the same with the dictator. I agree with the dictator's note ,documented as a scribe. Any additional findings or plans will be noted. Patient Condition at Discharge: Stable Plan - Discharge Summary Discharge Rx Participant: No New Discharge Prescriptions: New Pantoprazole Sodium [Protonix] 40 mg PO DAILY #14 tab Continue Escitalopram [Lexapro] 10 mg PO HS Discharge Medication List Escitalopram [Lexapro] 10 mg PO HS 10/27/21 [History] Pantoprazole Sodium [Protonix] 40 mg PO DAILY #14 tab 10/30/21 [Rx] Follow up Appointment(s)/Referral(s): Kartik Rosa MD [Primary Care Provider] - 11/06/21 3:00 pm Patient Instructions/Handouts: Bowel Obstruction (DC)
== END 2021-10-30 16:40 | disposition home or self-care (01) | DRG 390 ==
LOC: EC 12:53 → 4SSUR 17:12
PROVIDERS: ADMIT Family Medicine; ATTEND Family Medicine
PROC: 0D9670Z Drainage of Stomach with Drainage Device, Via Natural or Artificial Opening (ICD-10-PCS; principal; 2021-10-27)
DX: K56.7 Ileus, unspecified (principal); K56.600 Partial intestinal obstruction, unspecified as to cause; D72.829 Elevated white blood cell count, unspecified; E78.5 Hyperlipidemia, unspecified; E86.0 Dehydration; F41.9 Anxiety disorder, unspecified; Z85.89 Personal history of malignant neoplasm of other organs and systems; Z92.21 Personal history of antineoplastic chemotherapy; Z92.3 Personal history of irradiation
CPT/HCPCS: 36415; 74018; 74177; 80053; 81001; 82150; 83605; 83690; 85025; 85610; 85730; 96361; 96374; 96375; 99285

== ENCOUNTER 2022-09-22 17:47 | Inpatient (IN) | payer MEDICARE ==
[2022-09-22] MEDS ORDERED: HYDROmorphone 0.5 MG/0.5 ML SYRINGE IVP STA (18:45)
--- NOTE | 2022-09-22 18:51 | ED ---
General Adult HPI - General Chief complaint: Abdominal Pain Stated complaint: Abd Pain Time Seen by Provider: 09/22/22 18:04 Source: patient, RN notes reviewed, old records reviewed Mode of arrival: ambulatory Limitations: no limitations - History of Present Illness Initial comments: 72-year-old male presenting for evaluation of abdominal pain and distention. Patient has had several episodes of abdominal pain after surgery about 6 weeks ago. He had laparotomy for ruptured appendix. He denies fever. 3 episodes of vomiting today. He states he had a bowel movement this morning but he continues to have upper abdominal pain and distention. - Related Data Home Medications Medication Instructions Recorded Confirmed Escitalopram [Lexapro] 10 mg PO HS 10/27/21 09/22/22 Allergies Allergy/AdvReac Type Severity Reaction Status Date / Time Penicillins Allergy Unknown Verified 09/22/22 19:30 Childhood Review of Systems ROS Statement: Those systems with pertinent positive or pertinent negative responses have been documented in the HPI. ROS Other: All systems not noted in ROS Statement are negative. Past Medical History Past Medical History: Hyperlipidemia Additional Past Medical History / Comment(s): Hernia, Neck Cancer History of Any Multi-Drug Resistant Organisms: None Reported Past Surgical History: Appendectomy Additional Past Surgical History / Comment(s): head and ache radiation Past Psychological History: Anxiety Smoking Status: Never smoker Past Alcohol Use History: None Reported Past Drug Use History: None Reported General Exam Limitations: no limitations General appearance: alert, in no apparent distress Head exam: Present: atraumatic, normocephalic Eye exam: Present: normal appearance, PERRL ENT exam: Present: normal exam Neck exam: Present: normal inspection. Absent: tenderness, meningismus Respiratory exam: Present: normal lung sounds bilaterally. Absent: respiratory distress Cardiovascular Exam: Present: regular rate, normal rhythm GI/Abdominal exam: Present: soft, distended, tenderness. Absent: guarding, rebound Extremities exam: Present: normal inspection Neurological exam: Present: alert, oriented X3, CN II-XII intact. Absent: motor sensory deficit Psychiatric exam: Present: normal affect, normal mood Skin exam: Present: warm, dry, intact Course Vital Signs 09/22/22 17:55 Temperature 98.4 F Pulse Rate 90 Respiratory 18 Rate Blood Pressure 105/65 O2 Sat by Pulse 95 Oximetry Medical Decision Making - Medical Decision Making Was pt. sent in by a medical professional or institution (Dr., PA, WOODWIND INSTRUMENT REPAIRER, urgent care, hospital, or correction...) When possible be specific @ -[No] Did you speak to anyone other than the patient for history (EMS, parent, family, police, friend...)? What history was obtained from this source @ -[No] Did you review nursing and triage notes (agree or disagree)? Why? @ -[I reviewed and agree with nursing and triage notes] Were old charts reviewed (outside hosp., previous admission, EMS record, old EKG, old radiological studies, urgent care reports/EKG's, correction records)? Report findings @ -Previous surgical documentation reviewed and previous hospitalization review ed Differential Diagnosis (chest pain, altered mental status, abdominal pain women, abdominal pain men, vaginal bleeding, weakness, fever, dyspnea, syncope, headache, dizziness, GI bleed, back pain, seizure, CVA, palpatations, mental health, musculoskeletal)? @ -Differential Abdominal Pain Men: Appendicitis, cholecystitis, diverticulosis, ischemic bowel, pancreatitis, hepatitis, UTI, gastroenteritis, AAA, incarcerated hernia, bowel obstruction, constipation, inflammatory bowel, hepatitis, peptic ulcer disease, splenic infarction, perforated viscus, testicular torsion, this is not meant to be an all-inclusive list EKG interpreted by me (3pts min.). @ -[As above] X-rays interpreted by me (1pt min.). @ -[None done] CT interpreted by me (1pt min.). @ -CT of the pelvis was performed, I did review the images and agree with the radiologist's assessment a small bowel obstruction U/S interpreted by me (1pt. min.). @ -[None done] What testing was considered but not performed or refused? (CT, X-rays, U/S, labs)? Why? @ -[None] What meds were considered but not given or refused? Why? @ -[None] Did you discuss the management of the patient with other professionals (professionals i.e. ADAM Madrigal, WOODWIND INSTRUMENT REPAIRER, lab, RT, psych nurse, social services designee, community development aide, teacher, chief knowledge officer, window caser)? Give summary @ -Case discussed with the admitting physician Dr. Loya who is covering for Dr. Velazquez Was smoking cessation discussed for >3mins.? @ -[No] Was critical care preformed (if so, how long)? @ -[No] Were there social determinants of health that impacted care today? How? (Homelessness, low income, unemployed, alcoholism, drug addiction, transportation, low edu. Level, literacy, decrease access to med. care, intermediate, rehab)? @ -[No] Was there de-escalation of care discussed even if they declined (Discuss DNR or withdrawal of care, Hospice)? DNR status @ -[No] What co-morbidities impacted this encounter? (DM, HTN, Smoking, COPD, CAD, Cancer, CVA, ARF, Chemo, Hep., AIDS, mental health diagnosis, sleep apnea, morbid obesity)? @ -[None] Was patient admitted / discharged? Hospital course, mention meds given and route, prescriptions, significant lab abnormalities, going to OR and other pertinent info. @ -72-year-old male who presented with abdominal pain and distention several episodes of vomiting, concern for small bowel obstruction. Laboratory testing reveals a minimally elevated white blood cell count of 10.8, stable hemoglobin, normal electrolytes, elevated BUN/creatinine from baseline with a creatinine of 1.65. He has a CT showing small bowel obstruction. NG tube will be placed in the emergency department. The patient will be admitted for IV hydration and pain control. Undiagnosed new problem with uncertain prognosis? @ -[No] Drug Therapy requiring intensive monitoring for toxicity (Heparin, Nitro, Insulin, Cardizem)? @ -[No] Were any procedures done? @ -[No] Diagnosis/symptom? @ -[Small bowel obstruction, acute kidney injury] Acute, or Chronic, or Acute on Chronic? @ -Acute Uncomplicated (without systemic symptoms) or Complicated (systemic symptoms)? @ -Complicated Side effects of treatment? @ -[No] Exacerbation, Progression, or Severe Exacerbation? @ -[No] Poses a threat to life or bodily function? How? (Chest pain, USA, SC, pneumonia, PE, COPD, DKA, ARF, appy, cholecystitis, CVA, Diverticulitis, Homicidal, S uicidal, threat to staff... and all critical care pts) @ -Risk of bowel perforation, sepsis, multiorgan failure. - Lab Data Result diagrams: 09/22/22 18:37 09/22/22 18:37 Lab Results 09/22/22 09/22/22 09/22/22 Range/Units 18:37 18:37 18:37 WBC 10.8 H (3.8-10.6) k/uL RBC 4.41 (4.30-5.90) m/uL Hgb 14.3 (13.0-17.5) gm/dL Hct 41.2 (39.0-53.0) % MCV 93.3 (80.0-100.0) fL MCH 32.5 (25.0-35.0) pg MCHC 34.8 (31.0-37.0) g/dL RDW 12.8 (11.5-15.5) % Plt Count 301 (150-450) k/uL MPV 7.5 Neutrophils % 89 % Lymphocytes % 5 % Monocytes % 4 % Eosinophils % 0 % Basophils % 0 % Neutrophils # 9.7 H (1.3-7.7) k/uL Lymphocytes # 0.5 L (1.0-4.8) k/uL Monocytes # 0.5 (0-1.0) k/uL Eosinophils # 0.0 (0-0.7) k/uL Basophils # 0.0 (0-0.2) k/uL PT 10.2 (9.0-12.0) sec INR 1.0 (<1.2) APTT 23.9 (22.0-30.0) sec Sodium 134 L (137-145) mmol/L Potassium 4.8 (3.5-5.1) mmol/L Chloride 94 L (98-107) mmol/L Carbon Dioxide 28 (22-30) mmol/L Anion Gap 12 mmol/L BUN 36 H (9-20) mg/dL Creatinine 1.65 H (0.66-1.25) mg/dL Est GFR (CKD-EPI)AfAm 47 (>60 ml/min/1.73 sqM) Est GFR (CKD-EPI)NonAf 41 (>60 ml/min/1.73 sqM) Glucose 108 H (74-99) mg/dL Plasma Lactic Acid David (0.7-2.0) mmol/L Calcium 9.7 (8.4-10.2) mg/dL Total Bilirubin 0.7 (0.2-1.3) mg/dL AST 21 (17-59) U/L ALT 21 (4-49) U/L Alkaline Phosphatase 79 (38-126) U/L Total Protein 7.9 (6.3-8.2) g/dL Albumin 4.7 (3.5-5.0) g/dL Amylase 36 (30-110) U/L Lipase 54 (23-300) U/L 09/22/22 Range/Units 18:37 WBC (3.8-10.6) k/uL RBC (4.30-5.90) m/uL Hgb (13.0-17.5) gm/dL Hct (39.0-53.0) % MCV (80.0-100.0) fL MCH (25.0-35.0) pg MCHC (31.0-37.0) g/dL RDW (11.5-15.5) % Plt Count (150-450) k/uL MPV Neutrophils % % Lymphocytes % % Monocytes % % Eosinophils % % Basophils % % Neutrophils # (1.3-7.7) k/uL Lymphocytes # (1.0-4.8) k/uL Monocytes # (0-1.0) k/uL Eosinophils # (0-0.7) k/uL Basophils # (0-0.2) k/uL PT (9.0-12.0) sec INR (<1.2) APTT (22.0-30.0) sec Sodium (137-145) mmol/L Potassium (3.5-5.1) mmol/L Chloride (98-107) mmol/L Carbon Dioxide (22-30) mmol/L Anion Gap mmol/L BUN (9-20) mg/dL Creatinine (0.66-1.25) mg/dL Est GFR (CKD-EPI)AfAm (>60 ml/min/1.73 sqM) Est GFR (CKD-EPI)NonAf (>60 ml/min/1.73 sqM) Glucose (74-99) mg/dL Plasma Lactic Acid David 1.3 (0.7-2.0) mmol/L Calcium (8.4-10.2) mg/dL Total Bilirubin (0.2-1.3) mg/dL AST (17-59) U/L ALT (4-49) U/L Alkaline Phosphatase (38-126) U/L Total Protein (6.3-8.2) g/dL Albumin (3.5-5.0) g/dL Amylase (30-110) U/L Lipase (23-300) U/L Disposition Clinical Impression: Small bowel obstruction Disposition: ADMITTED IP TO THIS HOSP Condition: Stable Is patient prescribed a controlled substance at d/c from ED?: No Referrals: Kartik Rosa MD [Primary Care Provider] - 1-2 days Time of Disposition: 20:11
[2022-09-22 19:07] LABS: Basophils % (A) 0 %; Eosinophils % (A) 0 %; HCT 41.2 % (39.0-53.0); HGB 14.3 gm/dL (13.0-17.5); Lymphocytes # (A) 0.5 k/uL (1.0-4.8); Lymphocytes % (A) 5 %; MCH 32.5 pg (25.0-35.0); MCHC 34.8 g/dL (31.0-37.0); MCV 93.3 fL (80.0-100.0); Mean Platelet Volume 7.5; Monocytes # (A) 0.5 k/uL (0-1.0); Monocytes % (A) 4 %; Neutrophils # (A) 9.7 k/uL (1.3-7.7); Neutrophils % (A) 89 %; Platelet Count 301 k/uL (150-450); RBC 4.41 m/uL (4.30-5.90); RDW 12.8 % (11.5-15.5); WBC 10.8 k/uL (3.8-10.6)
[2022-09-22 19:16] LABS: Partial Thromboplastin Time 23.9 sec (22.0-30.0); Prothrombin Time 10.2 sec (9.0-12.0)
[2022-09-22 19:18] LABS: Potassium 4.8 mmol/L (3.5-5.1)
[2022-09-22 19:19] LABS: Albumin 4.7 g/dL (3.5-5.0); Calcium 9.7 mg/dL (8.4-10.2); Total Bilirubin 0.7 mg/dL (0.2-1.3); Total Protein 7.9 g/dL (6.3-8.2)
[2022-09-22] MEDS ORDERED: SODIUM CHLORIDE 0.9% 1,000 ML IV ONE (19:32)
--- NOTE | 2022-09-22 20:00 | CT ---
EXAMINATION TYPE: CT abdomen pelvis wo con DATE OF EXAM: 09/22/2022 COMPARISON: 08/08/2022 HISTORY: N,V,D x 1 day. appy sx [id number] ago CT DLP: 469.7 mGycm Automated exposure control for dose reduction was used. Images obtained from the diaphragm to the floor the pelvis with no contrast. The lung bases are clear of infiltrate. There is 5 mm noncalcified low density nodule in the posterio r subpleural right lower lobe. Unchanged. No pleural effusion. Heart size is normal. No pericardial e ffusion. Liver spleen and stomach pancreas appear intact. Gallbladder is intact. The bibasilar not di lated. There is no adrenal mass. Kidneys have normal size and contour. No hydronephrosis. Ureters are not di lated. No retroperitoneal adenopathy. Bladder distends smoothly. No inguinal hernia. No free fluid in the pelvis. There are multiple dilated fluid-filled small bowel loops in the abdomen. Small bowel dilated up to 4 .7 cm. The terminal ileum is not dilated. There are clips apparently from appendectomy. Transition po int not seen. No intestinal wall thickening. No free air. The lumbar vertebra have normal alignment. There is narro wing at L4-5 and L5-S1 disc spaces with spurring. No compression fracture. Bony pelvis is intact. The hip joints are intact. Acetabula appear intact. IMPRESSION: Multiple dilated small bowel loops with fluid levels and consistent with mechanical small bowel obstr uction. Transition point not seen. Dilation increased compared to the old exam. No free air. There is clearing of the interstitial basilar pulmonary infiltrates compared to older exam
[2022-09-22] MEDS ORDERED: ONDANSETRON 4 MG/2 ML VIAL IVP PRN (20:07)
[2022-09-22] MEDS ORDERED: NALOXONE 0.4 MG/ML 1 ML VIAL IV PRN (20:07)
[2022-09-22] MEDS: HYDROmorphone 1 MG/ML 1 ML SYRINGE IVP PRN ×2 (20:12→23:14)
--- NOTE | 2022-09-22 21:35 | XR ---
EXAMINATION TYPE: XR chest 1V portable DATE OF EXAM: 09/22/2022 COMPARISON: NONE HISTORY: Tube placement TECHNIQUE: Single view FINDINGS: There is nasogastric tube and the tip is over the gastric fundus. Heart is slightly enlarge d. No heart failure. Lungs are clear of consolidation. No pleural effusion there are no hilar masses. The bony thorax is intact. IMPRESSION: No active cardiopulmonary disease. Mild cardiomegaly. NG tube is in the stomach.
[2022-09-22] MEDS: SODIUM CHLORIDE 0.9% 1,000 ML IV SCH (22:28)
[2022-09-23] MEDS: HYDROmorphone 1 MG/ML 1 ML SYRINGE IVP PRN ×6 (02:23→22:21)
[2022-09-23] MEDS: SODIUM CHLORIDE 0.9% 1,000 ML IV SCH ×3 (07:43→22:21)
[2022-09-23] MEDS ORDERED: BENZOCAINE SPRAY 1 CAN MUCOUS MEM PRN (10:41)
--- NOTE | 2022-09-23 10:55 | P.GSHP ---
History of Present Illness H&P Date: 09/23/22 CHIEF COMPLAINT: Abdominal pain HISTORY OF PRESENT ILLNESS: This is a 72-year-old male who presented to hospital with complaints of upper abdominal pain with nausea and vomiting. He complains of abdominal pain with abdominal distention. He reports vomiting that started yesterday. Patient is status post diagnostic laparoscopy, laparotomy with lysis of adhesions and appendectomy for a bowel obstruction secondary to perforated appendicitis with peritonitis on 08/09/2022. Patient reports that he completed his antibiotics for his appendicitis. Patient reports that he is no longer having any flatus. He was able to have a liquidy stool yesterday. He had a computed tomography scan completed that shows multiple dilated small bowel loops with fluid levels consistent with mechanical small bowel obstruction. Transition point not seen. Dilation increased compared to old exam. No free air. Patient did have NG tube placed in ER. Denies any fevers chills or sweats. Denies any cardiac history. PAST MEDICAL HISTORY: See below PAST SURGICAL HISTORY: See below MEDICATIONS: See below ALLERGIES: See below SOCIAL HISTORY: No illicit drug use. REVIEW OF SYSTEMS: CONSTITUTIONAL: Denies fever or chills. HEENT: Denies blurred vision, vision changes, or eye pain. Denies hemoptysis CARDIOVASCULAR: Denies chest pain or pressure. RESPIRATORY: No shortness of breath. GASTROINTESTINAL: See HPI for pertinent findings HEMATOLOGIC: Denies bleeding disorders. GENITOURINARY: Denies any blood in urine or increased urinary frequency. SKIN: Denies pruitis. Denies rash. PHYSICAL EXAM: VITAL SIGNS: Reviewed GENERAL: Well-developed in no acute distress. HEENT: No sclera icterus. Extraocular movements grossly intact. Moist buccal mucosa. Head is atraumatic, normocephalic. No nasal drainage. ABDOMEN: Distended. Tenderness upper abdomen with palpation. Incisional scar is healed. No evidence of infection. NEUROLOGIC: Alert and oriented. Cranial nerves II through XII grossly intact. LABORATORY DATA: WBC is 10.8 Hgb 14.3 platelets 301 Sodium 134 potassium 4.8 creatinine 1.65 Lactic acid 1.3 LFTs normal Lipase 54 IMAGING: Computed tomography scan as stated above Chest x-ray no active cardiopulmonary disease. Mild cardiomegaly. NG tube in the stomach. ASSESSMENT: 1. Mechanical small bowel obstruction 2. Diagnostic laparoscopy, laparotomy with lysis of adhesions and appendectomy for a bowel obstruction secondary to perforated appendicitis with peritonitis on 08/09/2022 3. Acute kidney injury PLAN: -Patient scheduled for diagnostic laparoscopy, possible laparotomy and possible bowel resection tomorrow 09/24/[address] Velazquez -Continue NG tube for decompression -Keep patient nothing by mouth -Continue IV fluids -Continue supportive care -Hurricaine spray added for throat irritation from NG tube Physician Radio Engineering Teacher note has been reviewed by physician. Signing provider agrees with the documented findings, assessment, and plan of care. I have personally seen and examined the patient, reviewed the CODING TECH /PAs history, exam and MDM and agree with the assessment and plan as written. Based on total visit time, I have performed more than 50% of the visit. As above: Patient known to our service well after her recent open appendectomy for ruptured appendicitis with peritonitis and small bowel obstruction last admission. He was seen last in the office about 2 weeks ago. Even at that time the patient was having some complaints of bloating and gas. He was distended slightly on exam with some tympany. We discussed a repeat CAT scan at the time we decided to hold off and try stool softeners. He says the stool softeners helped somewhat but the symptoms became more severe over the last few days. He came to the ER yesterday. CAT scan reviewed. Patient's CAT scan definitely appears consistent with a suspected higher grade partial small bowel obstruction. He and I discussed the options. Given the fact that we have been monitoring his symptoms for the last few weeks with a mechanic sound technician diet I'm not convinced that continued observation and will lead to full resolution of his symptoms. For that reason he and I decided that we would proceed with diagnostic laparoscopy, possible laparotomy, possible bowel resection tomorrow. Risks of bleeding, infection, scarring, recurrent obstruction, leak, abscess, iatrogenic bowel injury, hernia, anesthesia related, locations reviewed. We discussed this also with his by phone. He understands and wishes to proceed. Past Medical History Past Medical History: Hyperlipidemia Additional Past Medical History / Comment(s): Hernia, Neck Cancer History of Any Multi-Drug Resistant Organisms: None Reported Past Surgical History: Appendectomy Additional Past Surgical History / Comment(s): head and ache radiation Past Psychological History: Anxiety Smoking Status: Former smoker Past Alcohol Use History: None Reported Past Drug Use History: None Reported Medications and Allergies Home Medications Medication Instructions Recorded Confirmed Type Escitalopram [Lexapro] 10 mg PO HS 10/27/21 09/22/22 History Allergies Allergy/AdvReac Type Severity Reaction Status Date / Time Penicillins Allergy Unknown Verified 09/22/22 19:30 Childhood Surgical - Exam Vital Signs Temp Pulse Resp BP Pulse Ox 98.4 F 90 18 105/65 95 09/22/22 17:55 09/22/22 17:55 09/22/22 17:55 09/22/22 17:55 09/22/22 17:55 Results - Labs 09/22/22 18:37 09/23/22 11:00 Abnormal Lab Results - Last 24 Hours (Table) 09/22/22 09/22/22 Range/Units 18:37 18:37 WBC 10.8 H (3.8-10.6) k/uL Neutrophils # 9.7 H (1.3-7.7) k/uL Lymphocytes # 0.5 L (1.0-4.8) k/uL Sodium 134 L (137-145) mmol/L Chloride 94 L (98-107) mmol/L BUN 36 H (9-20) mg/dL Creatinine 1.65 H (0.66-1.25) mg/dL Glucose 108 H (74-99) mg/dL Diabetes panel 09/22/22 Range/Units 18:37 Sodium 134 L (137-145) mmol/L Potassium 4.8 (3.5-5.1) mmol/L Chloride 94 L (98-107) mmol/L Carbon Dioxide 28 (22-30) mmol/L BUN 36 H (9-20) mg/dL Creatinine 1.65 H (0.66-1.25) mg/dL Glucose 108 H (74-99) mg/dL Calcium 9.7 (8.4-10.2) mg/dL AST 21 (17-59) U/L ALT 21 (4-49) U/L Alkaline Phosphatase 79 (38-126) U/L Total Protein 7.9 (6.3-8.2) g/dL Albumin 4.7 (3.5-5.0) g/dL Calcium panel 09/22/22 Range/Units 18:37 Calcium 9.7 (8.4-10.2) mg/dL Albumin 4.7 (3.5-5.0) g/dL Pituitary panel 09/22/22 Range/Units 18:37 Sodium 134 L (137-145) mmol/L Potassium 4.8 (3.5-5.1) mmol/L Chloride 94 L (98-107) mmol/L Carbon Dioxide 28 (22-30) mmol/L BUN 36 H (9-20) mg/dL Creatinine 1.65 H (0.66-1.25) mg/dL Glucose 108 H (74-99) mg/dL Calcium 9.7 (8.4-10.2) mg/dL Adrenal panel 09/22/22 Range/Units 18:37 Sodium 134 L (137-145) mmol/L Potassium 4.8 (3.5-5.1) mmol/L Chloride 94 L (98-107) mmol/L Carbon Dioxide 28 (22-30) mmol/L BUN 36 H (9-20) mg/dL Creatinine 1.65 H (0.66-1.25) mg/dL Glucose 108 H (74-99) mg/dL Calcium 9.7 (8.4-10.2) mg/dL Total Bilirubin 0.7 (0.2-1.3) mg/dL AST 21 (17-59) U/L ALT 21 (4-49) U/L Alkaline Phosphatase 79 (38-126) U/L Total Protein 7.9 (6.3-8.2) g/dL Albumin 4.7 (3.5-5.0) g/dL
[2022-09-23 11:48] LABS: African American GFR (CKD) 85 (>60 ml/min/1.73 sqM); Anion Gap 9 mmol/L; Blood Urea Nitrogen 36 mg/dL (9-20); Carbon Dioxide 27 mmol/L (22-30); Chloride 101 mmol/L (98-107); Glucose 89 mg/dL (74-99); Non-African American GFR(CKD) 74 (>60 ml/min/1.73 sqM); Potassium 4.4 mmol/L (3.5-5.1); Sodium 137 mmol/L (137-145)
--- NOTE | 2022-09-23 12:04 | P.CONS ---
History of Present Illness - Reason for Consult Consult date: 09/23/22 Medical management hypertension Requesting physician: Jeramie Velazquez - History of Present Illness This is a 72-year-old gentleman with past medical history of recent diagnostic laparoscopy, laparotomy with lysis of adhesions and appendectomy for a bowel obstruction secondary to perforated appendicitis with peritonitis on 08/09/2022, left inguinal hernia repair, partial small bowel obstruction with possible ileus 10/26, prior nicotine dependence presented to the ER with upper abdominal pain, distention accompanied by nausea and vomiting, worsening since Friday. Reports loose stool yesterday, none today. Denies flatus.Abdominal/pelvisCT reporting multiple dilated small bowel loops with fluid levels consistent with mechanical small bowel obstruction. Transition point not seen, dilation increased compared to prior exam.Afebrile, WBC 10.8, lactic acid 1.3, hemoglobin 14.3, platelets 301, INR 1. Electrolytes within normal limits, renal function improved with IV fluid hydration, BUN 36, creatinine decreased to 1.01 from 1.65. LFTs/lipase within normal limits.VSS. NPO. Review of Systems ROS Statement: Those systems with pertinent positive or pertinent negative responses have been documented in the HPI. ROS Other: All systems not noted in ROS Statement are negative. Past Medical History Past Medical History: Hyperlipidemia Additional Past Medical History / Comment(s): Hernia, Neck Cancer History of Any Multi-Drug Resistant Organisms: None Reported Past Surgical History: Appendectomy Additional Past Surgical History / Comment(s): head and ache radiation Past Psychological History: Anxiety Smoking Status: Former smoker Past Alcohol Use History: None Reported Past Drug Use History: None Reported Medications and Allergies Home Medications Medication Instructions Recorded Confirmed Type Escitalopram [Lexapro] 10 mg PO HS 10/27/21 09/22/22 History Allergies Allergy/AdvReac Type Severity Reaction Status Date / Time Penicillins Allergy Unknown Verified 09/22/22 19:30 Childhood Physical Exam Vitals: Vital Signs Temp Pulse Pulse Resp BP BP Pulse Ox 09/23/22 07:05 97.8 F 54 L 18 116/66 98 09/23/22 03:55 166/77 09/23/22 03:41 97.6 F 77 18 182/84 97 09/23/22 02:22 67 18 136/88 97 09/22/22 20:20 79 18 135/73 97 09/22/22 17:55 98.4 F 90 18 105/65 95 Intake and Output 09/22/22 09/23/22 09/23/22 22:59 06:59 14:59 Intake Total 200 Balance 200 Intake: Intake, IV Titration 200 Amount Sodium Chloride 0.9% 1, 200 000 ml @ 100 mls/hr IV . Q10H PO Rx#:[id number] Other: Weight 76.204 kg 75 kg VS: As above GENERAL: Well-appearing, well-nourished, sitting up in bed,NAD HEAD: Atraumatic, normocephalic. HEENT: Normocephalic, atraumatic ,Pupils equal round and reactive to light,sclera anicteric, conjunctiva normal,NG present. NECK: supple, no JVD ,no lymphadenopathy no thyromegaly LUNGS: Nonlabored, CTA,No wheezes rales or rhonchi. HEART: Regular rate and rhythm without murmurs, rubs or gallops.S1S2 Normal ABDOMEN: Soft, distended, mild diffuse tenderness, well approximated, healed incisional scar, No guarding. EXTREMITIES: Normal range of motion, no pitting or edema. No clubbing or cyanosis. NEUROLOGICAL: Cranial nerves II through XII grossly intact. No focal deficits. PSYCH: Alert and oriented 3, Normal mood, normal affect. SKIN: Warm, Dry, no rashes noted. Results CBC & Chem 7: 09/22/22 18:37 09/22/22 18:37 Labs: Abnormal Lab Results - Last 24 Hours (Table) 09/22/22 09/22/22 Range/Units 18:37 18:37 WBC 10.8 H (3.8-10.6) k/uL Neutrophils # 9.7 H (1.3-7.7) k/uL Lymphocytes # 0.5 L (1.0-4.8) k/uL Sodium 134 L (137-145) mmol/L Chloride 94 L (98-107) mmol/L BUN 36 H (9-20) mg/dL Creatinine 1.65 H (0.66-1.25) mg/dL Glucose 108 H (74-99) mg/dL Assessment and Plan Assessment: Mechanical Small bowel obstruction in a patient with history of recent diagnostic laparoscopy, laparotomy with lysis of adhesions,appendectomy for a bowel obstruction secondary to perforated appendicitis with peritonitis on 08/09/2022,partial small bowel obstruction 10/26. Acute renal failure, improving with IV fluid hydration history of left inguinal hernia repair History of Daily alcohol use 2-3 beers daily Prior nicotine dependence History of neck cancer, s/p chemotherapy and radiation Anxiety Hyperlipidemia Plan: Continue on current medication regime ,monitoring and symptomatic treatment.Pain management. NPO, maintain IV fluid hydration. PPI ordered for GI prophylaxis. Aggressive pulmonary toileting with incentive spirometer ordered.Diagnostic laparoscopy scheduled for tomorrow. Thank you for the consult. The impression and plan of care has been dictated as directed. : I performed a history and examination of this patient, discussed the same with the dictator. I agree with the dictator's note ,documented as a scribe. Any additional findings or plans will be noted.
[2022-09-24] MEDS: HYDROmorphone 1 MG/ML 1 ML SYRINGE IVP PRN ×3 (03:58→11:23)
[2022-09-24] MEDS: PANTOPRAZOLE 40 MG/10 ML VIAL IVP SCH (08:04)
[2022-09-24 10:53] LABS: Basophils # (A) 0.03 X 10*3/uL (0.00-0.10); Eosinophils # (A) 0.04 X 10*3/uL (0.04-0.35); Eosinophils % (A) 1.4 %; HCT 36.8 % (39.6-50.0); HGB 11.9 g/dL (13.0-17.0); Immature Grans, Automated 0 %; Lymphocytes # (A) 0.55 X 10*3/uL (0.90-5.00); Lymphocytes % (A) 19.2 %; MCH 31.2 pg (27.0-32.0); MCHC 32.3 g/dL (32.0-37.0); MCV 96.3 fL (80.0-97.0); Mean Platelet Volume 9.5 fL (9.5-12.2); Monocytes % (A) 17.4 %; NRBC Per 100 WBC 0 /100 WBCS (0.0-0.0); Neutrophils # (A) 1.75 X 10*3/uL (1.80-7.70); Platelet Count 266 X 10*3/uL (140-440); RBC 3.82 X 10*6/uL (4.40-5.60); RDW 12.5 % (11.5-14.5); WBC 2.87 X 10*3/uL (4.50-10.00)
[2022-09-24 11:51] LABS: African American GFR (CKD) 99.1 (60.0-200.0); Anion Gap 8.5 mmol/L (10.00-18.00); BUN/Creat Ratio 22.13 Ratio (12.00-20.00); Blood Urea Nitrogen 19.3 mg/dL (9.0-27.0); Calcium 8.8 mg/dL (8.7-10.3); Non-African American GFR(CKD) 85.5 (60.0-200.0); Potassium 4.7 mmol/L (3.5-5.5)
[2022-09-24] MEDS: LACTATED RINGERS 1,000 ML IV SCH (13:33)
[2022-09-24] MEDS ORDERED: HEPARIN SODIUM,PORCINE/PF 5,000 UNIT/0.5 ML SYRINGE SQ ONE (13:44)
[2022-09-24] MEDS ORDERED: ONDANSETRON 4 MG/2 ML VIAL IVP ONE (13:50)
[2022-09-24] MEDS ORDERED: fentaNYL (PF) 50 MCG/ML 2 ML AMP IVP ONE (13:51)
--- NOTE | 2022-09-24 13:59 | P.PN ---
Subjective Progress Note Date: 09/24/22 - History of Present Illness 09/23/22 This is a 72-year-old gentleman with past medical history of recent diagnostic laparoscopy, laparotomy with lysis of adhesions and appendectomy for a bowel obstruction secondary to perforated appendicitis with peritonitis on 08/09/2022, left inguinal hernia repair, partial small bowel obstruction with possible ileus 10/26, prior nicotine dependence presented to the ER with upper abdominal pain, distention accompanied by nausea and vomiting, worsening since Friday. Reports loose stool yesterday, none today. Denies flatus.Abdominal/pelvisCT reporting multiple dilated small bowel loops with fluid levels consistent with mechanical small bowel obstruction. Transition point not seen, dilation increased compared to prior exam.Afebrile, WBC 10.8, lactic acid 1.3, hemoglobin 14.3, platelets 301, INR 1. Electrolytes within normal limits, renal function improved with IV fluid hydration, BUN 36, creatinine decreased to 1.01 from 1.65. LFTs/lipase within normal limits.VSS. NPO. 09/24/2022 NPO, surgery pending. Labs pending. Objective - Vital Signs Vital signs: Vital Signs Temp 98.5 F 09/24/22 07:49 Pulse 78 09/24/22 07:49 Resp 18 09/24/22 07:49 BP 153/79 09/24/22 07:49 Pulse Ox 93 L 09/24/22 07:49 FiO2 Intake & Output 09/23/22 09/24/22 09/24/22 18:59 06:59 18:59 Output Total 950 Balance -950 Output: Gastric Drainage 450 Urine 500 Other: Voiding Method Urinal - Exam VS: As above GENERAL: Alert and oriented 3, sitting up in bed,NAD HEAD: Atraumatic, normocephalic. HEENT: Normocephalic, atraumatic ,Pupils equal round and reactive to light,sclera anicteric, conjunctiva normal,NG present. NECK: supple, no JVD ,no lymphadenopathy no thyromegaly LUNGS: Nonlabored, CTA,No wheezes rales or rhonchi. HEART: Regular rate and rhythm without murmurs, rubs or gallops.S1,S2 Normal ABDOMEN: Soft, distended, mild diffuse tenderness, well approximated, healed in cisional scar, No guarding. EXTREMITIES: Normal range of motion, no pitting or edema. No clubbing or cyanosis. NEUROLOGICAL: Cranial nerves II through XII grossly intact. No focal deficits. SKIN: Warm, Dry, no rashes noted. - Labs CBC & Chem 7: 09/24/22 05:56 09/24/22 05:56 Labs: Abnormal Lab Results - Last 24 Hours (Table) 09/23/22 09/24/22 Range/Units 11:00 05:56 WBC 2.87 L (4.50-10.00) X 10*3/uL RBC 3.82 L (4.40-5.60) X 10*6/uL Hgb 11.9 L (13.0-17.0) g/dL Hct 36.8 L (39.6-50.0) % Neutrophils # 1.75 L (1.80-7.70) X 10*3/uL Lymphocytes # 0.55 L (0.90-5.00) X 10*3/uL BUN 36 H (9-20) mg/dL Assessment and Plan Assessment: Mechanical Small bowel obstruction in a patient with history of recent diagnostic laparoscopy, laparotomy with lysis of adhesions,appendectomy for a bowel obstruction secondary to perforated appendicitis with peritonitis on 08/09/2022,partial small bowel obstruction 10/26. Acute renal failure, improving with IV fluid hydration history of left inguinal hernia repair History of Daily alcohol use 2-3 beers daily Prior nicotine dependence History of neck cancer, s/p chemotherapy and radiation Anxiety Hyperlipidemia Plan: Continue on current medication regime ,monitoring and symptomatic janell atment. Labs pending. NPO,OR pending, maintain IV fluid hydration. Pain management. Aggressive pulmonary toileting with incentive spirometer reinforced. The impression and plan of care has been dictated as directed. : I performed a history and examination of this patient, discussed the same with the dictator. I agree with the dictator's note ,documented as a scribe. Any additional findings or plans will be noted.
[2022-09-24] MEDS ORDERED: HEPARIN SODIUM,PORCINE 5,000 UNIT/ML 1 ML VIAL SQ ONE (15:59)
[2022-09-24 16:06] LABS: Glucose,Whole Blood 79 mg/dL (70-110)
[2022-09-24] MEDS ORDERED: fentaNYL (PF) 50 MCG/ML 2 ML AMP ONE (16:25)
[2022-09-24] MEDS ORDERED: PHENYLEPHRINE-0.9% NACL SYG 1,000 MCG/10 ML SYRINGE ONE (16:25)
[2022-09-24] MEDS ORDERED: ePHEDrine 50 MG/ML 1 ML VIAL ONE (16:25)
[2022-09-24] MEDS ORDERED: LIDOCAINE 2% INJ 20 MG/ML (2 ML VIAL) ONE (16:25)
[2022-09-24] MEDS ORDERED: SUCCINYLCHOLINE CHLORIDE 200 MG/10 ML VIAL IV ONE (16:25)
[2022-09-24] MEDS ORDERED: GLYCOPYRROLATE 0.2 MG/ML 2 ML VIAL ONE (16:25)
[2022-09-24] MEDS ORDERED: PROPOFOL 10 MG/ML 20 ML VIAL IV ONE (16:25)
[2022-09-24] MEDS ORDERED: NEOSTIGMINE 1 MG/ML 10 ML VIAL ONE (16:25)
[2022-09-24] MEDS ORDERED: MIDAZOLAM 2 MG/2 ML VIAL ONE (16:25)
[2022-09-24] MEDS ORDERED: ROCURONIUM 10 MG/ML (5 ML VIAL) IV ONE (16:25)
[2022-09-24] MEDS ORDERED: BUPIVACAIN-EPI 0.25%-1:200,000 30 ML VIAL SQ ONE ×2 (16:53→16:58)
[2022-09-24] MEDS ORDERED: LACTATED RINGERS 1,000 ML IV ONE (17:29)
--- NOTE | 2022-09-24 17:50 | P.OP ---
Date of Procedure: 09/24/22 Procedure(s) Performed: PREOPERATIVE DIAGNOSIS: Small bowel obstruction POSTOPERATIVE DIAGNOSIS: Small bowel obstruction secondary to intra-abdominal adhesions PROCEDURE: Laparoscopic lysis of adhesions with excision portion of omental adhesion SURGEON: Caroline EBL: Lloyd Moreira ANESTHESIA: Gen. COMPLICATIONS: None OPERATIVE PROCEDURE: Patient placed on the operative table in the supine position. The patient was placed under general anesthesia. The abdomen was prepped and draped sterilely. The patient had 2 prior left abdominal wall 5 mm scars from previous laparoscopy. The more superior one was re-incised after localizing with Marcaine. Entrance into the peritoneal cavity using an optical 5 mm trocar placed without difficulty. Full insufflation took place. And additional 5 mm trocar was placed at the other scar site and a third 5 mm trocar in the left upper quadrant. The patient had a thin veil of adhesions between the midline peritoneal closure and the omentum and small bowel. This was able to be lysed fairly easily. The patient's obstruction was identified in the proximal ileum. There was a portion of the proximal transverse colon omentum that was adhesed to 2 separate loops of small bowel. This was able to be lysed using both blunt dissection and LigaSure. I decided to remove a portion of this omentum where it was chronically inflamed. The patient had multiple thin fibrinous adhesive bands also between various portions of the peritoneum and the small bowel. These were all lysed using either blunt dissection or LigaSure. 2 of these adhesive bands were thick enough that we decided to remove them with our omental specimen. We were able to follow the bowel all the way to the ileocecal valve. No abscess was seen. The small bowel was then run in its entirety from the cecum to the ligament of Treitz. Other than the 2 sites where the small bowel had been tethered to the omentum there were no abnormalities present. He was no evidence of serosal tear or perforation at the omental adhesion sites. The bowel appeared viable without ischemic changes. The insufflation was then evacuated. The skin was closed at all 3 sites using interrupted 4-0 Monocryl sutures. Skin glue was applied. During the procedure the patient stomach was mildly distended. I asked anesthesia to remove the nasogastric tube and replaced with a new one. They were unable to successfully decompress the stomach. I decided at that point given the patient's complaints preoperatively to leave the nasogastric tube out. DISPOSITION: Stable to recovery room
[2022-09-24] MEDS: SODIUM CHLORIDE 0.9% 1,000 ML IV SCH (18:49)
[2022-09-24] MEDS: HYDROmorphone 0.5 MG/0.5 ML SYRINGE IVP PRN (20:03)
[2022-09-24] MEDS: HEPARIN SODIUM,PORCINE/PF 5,000 UNIT/0.5 ML SYRINGE SQ SCH (23:36)
[2022-09-25] MEDS: HYDROmorphone 1 MG/ML 1 ML SYRINGE IVP PRN (01:57)
[2022-09-25] MEDS: SODIUM CHLORIDE 0.9% 1,000 ML IV SCH ×3 (01:59→20:29)
[2022-09-25] MEDS: HEPARIN SODIUM,PORCINE/PF 5,000 UNIT/0.5 ML SYRINGE SQ SCH ×2 (09:12→16:32)
[2022-09-25] MEDS: HYDROmorphone 0.5 MG/0.5 ML SYRINGE IVP PRN (09:12)
[2022-09-25] MEDS: PANTOPRAZOLE 40 MG/10 ML VIAL IVP SCH (09:15)
[2022-09-25 10:36] LABS: Basophils # (A) 0.01 X 10*3/uL (0.00-0.10); Basophils % (A) 0.2 %; Eosinophils # (A) 0.01 X 10*3/uL (0.04-0.35); Eosinophils % (A) 0.2 %; HCT 36.7 % (39.6-50.0); HGB 11.8 g/dL (13.0-17.0); Immature Grans, Automated 0.4 %; Lymphocytes # (A) 0.68 X 10*3/uL (0.90-5.00); Lymphocytes % (A) 12.5 %; MCH 31.1 pg (27.0-32.0); MCHC 32.2 g/dL (32.0-37.0); MCV 96.8 fL (80.0-97.0); Mean Platelet Volume 9.8 fL (9.5-12.2); Monocytes # (A) 0.43 X 10*3/uL (0.20-1.00); Monocytes % (A) 7.9 %; NRBC Per 100 WBC 0 /100 WBCS (0.0-0.0); Neutrophils # (A) 4.27 X 10*3/uL (1.80-7.70); Neutrophils % (A) 78.8 %; Platelet Count 277 X 10*3/uL (140-440); RBC 3.79 X 10*6/uL (4.40-5.60); RDW 12.1 % (11.5-14.5); WBC 5.42 X 10*3/uL (4.50-10.00)
--- NOTE | 2022-09-25 11:18 | P.PN ---
Subjective Progress Note Date: 09/25/22 CHIEF COMPLAINT: Small bowel obstruction HISTORY OF PRESENT ILLNESS: Patient is POD#1 status post laparoscopic lysis of adhesions with excision portion of omental adhesion for small bowel traction secondary to intra-abdominal adhesions. Patient reports having flatus. He did have some nausea last night that has not resolved. He does report abdominal pain that improves the pain medication. Afebrile. WBC is 5.42 hgb 11.8 platelets 277 BMP pending PHYSICAL EXAM: VITAL SIGNS: Reviewed. GENERAL: Well-developed in no acute distress. HEENT: No sclera icterus. Extraocular movements grossly intact. Moist buccal mucosa. Head is atraumatic, normocephalic. ABDOMEN: Soft. Nondistended. Incision sites clean dry and intact NEUROLOGIC: Alert and oriented. Cranial nerves II through XII grossly intact. ASSESSMENT: 1. Small bowel obstruction status post laparoscopic lysis of adhesions with excision portion of omental adhesion PLAN: -Advanced at clear liquids -[place] as needed for pain control -Encouraged patient to increase activity level -Continue IV fluids -Encouraged incentive spirometer use -GI prophylaxis Protonix and DVT prophylaxis subcu heparin Physician Office Support Clerk note has been reviewed by physician. Signing provider agrees with the documented findings, assessment, and plan of care. I have personally seen and examined the patient, reviewed the DURALUMIN METALWORKER /PAs history, exam and MDM and agree with the assessment and plan as written. Based on total visit time, I have performed more than 50% of the visit. As above: Patient seems to be doing well today. He is passing flatus. Denies nausea. Begin clear liquids. Advance to full liquids tomorrow if tolerates. Increase activity. Objective - Vital Signs Vital signs: Vital Signs Temp 97.8 F 09/25/22 08:30 Pulse 84 09/25/22 08:30 Resp 17 09/25/22 08:30 BP 151/75 09/25/22 08:30 Pulse Ox 92 L 09/25/22 01:33 FiO2 Intake & Output 09/24/22 09/25/22 09/25/22 18:59 06:59 18:59 Intake Total 1700 Output Total 5 700 Balance 1695 -700 Intake: IV 1700 Output: Urine 700 Estimated Blood Loss 5 Other: Voiding Method Urinal - Labs CBC & Chem 7: 09/25/22 07:26 09/25/22 07:26 Labs: Abnormal Lab Results - Last 24 Hours (Table) 09/24/22 09/25/22 Range/Units 05:56 07:26 RBC 3.79 L (4.40-5.60) X 10*6/uL Hgb 11.8 L (13.0-17.0) g/dL Hct 36.7 L (39.6-50.0) % Lymphocytes # 0.68 L (0.90-5.00) X 10*3/uL Eosinophils # 0.01 L (0.04-0.35) X 10*3/uL Carbon Dioxide 30.0 H (20.0-27.5) mmol/L Anion Gap 8.50 L (10.00-18.00) mmol/L BUN/Creatinine Ratio 22.13 H (12.00-20.00) Ratio
[2022-09-25 11:27] LABS: African American GFR (CKD) 102.7 (60.0-200.0); Anion Gap 10.9 mmol/L (10.00-18.00); Blood Urea Nitrogen 9.6 mg/dL (9.0-27.0); Calcium 8.9 mg/dL (8.7-10.3); Carbon Dioxide 29.1 mmol/L (20.0-27.5); Non-African American GFR(CKD) 88.6 (60.0-200.0); Potassium 4.7 mmol/L (3.5-5.5)
--- NOTE | 2022-09-25 12:35 | P.PN ---
Subjective Progress Note Date: 09/25/22 - History of Present Illness 09/23/22 This is a 72-year-old gentleman with past medical history of recent diagnostic laparoscopy, laparotomy with lysis of adhesions and appendectomy for a bowel obstruction secondary to perforated appendicitis with peritonitis on 08/09/2022, left inguinal hernia repair, partial small bowel obstruction with possible ileus 10/26, prior nicotine dependence presented to the ER with upper abdominal pain, distention accompanied by nausea and vomiting, worsening since Friday. Reports loose stool yesterday, none today. Denies flatus.Abdominal/pelvisCT reporting multiple dilated small bowel loops with fluid levels consistent with mechanical small bowel obstruction. Transition point not seen, dilation increased compared to prior exam.Afebrile, WBC 10.8, lactic acid 1.3, hemoglobin 14.3, platelets 301, INR 1. Electrolytes within normal limits, renal function improved with IV fluid hydration, BUN 36, creatinine decreased to 1.01 from 1.65. LFTs/lipase within normal limits.VSS. NPO. 09/24/2022 NPO, surgery pending. Labs pending. 09/25/2022 status post laparoscopic lysis of adhesions with excision portion of omental adhesion, postop day #1. Tolerated procedure well. No further nausea since last night.Positive flatus. Pain currently controlled. Denies chest pain, palpitations or shortness of breath. Maintaining O2 sats in the low to mid 90s on room air. T-max 99.3, WBC 5.42. Hemoglobin 11.8, platelets 277. Objective - Vital Signs Vital signs: Vital Signs Temp 97.8 F 09/25/22 08:30 Pulse 84 09/25/22 08:30 Resp 17 09/25/22 08:30 BP 151/75 09/25/22 08:30 Pulse Ox 92 L 09/25/22 01:33 FiO2 Intake & Output 09/24/22 09/25/22 09/25/22 18:59 06:59 18:59 Intake Total 1700 Output Total 5 700 Balance 1695 -700 Intake: IV 1700 Output: Urine 700 Estimated Blood Loss 5 Other: Voiding Method Urinal - Exam VS: As above GENERAL: Alert and oriented 3, sitting up in bed,NAD HEAD: Atraumatic, normocephalic. HEENT: Normocephalic, atraumatic ,Pupils equal round and reactive to light,sclera anicteric, conjunctiva normal. NECK: supple, no JVD LUNGS: Nonlabored, CTA,No wheezes rales or rhonchi. HEART: Regular rate and rhythm without murmurs, rubs or gallops.S1,S2 Normal ABDOMEN: Soft, status post surgery, No guarding. EXTREMITIES: Normal range of motion, no pitting or edema. No clubbing or cyanosis. NEUROLOGICAL: Cranial nerves II through XII grossly intact. No focal deficits. SKIN: Warm, Dry, no rashes noted. - Labs CBC & Chem 7: 09/25/22 07:26 09/25/22 07:26 Labs: Abnormal Lab Results - Last 24 Hours (Table) 09/24/22 09/24/22 09/25/22 Range/Units 05:56 05:56 07:26 WBC 2.87 L (4.50-10.00) X 10*3/uL RBC 3.82 L 3.79 L (4.40-5.60) X 10*6/uL Hgb 11.9 L 11.8 L (13.0-17.0) g/dL Hct 36.8 L 36.7 L (39.6-50.0) % Neutrophils # 1.75 L (1.80-7.70) X 10*3/uL Lymphocytes # 0.55 L 0.68 L (0.90-5.00) X 10*3/uL Eosinophils # 0.01 L (0.04-0.35) X 10*3/uL Carbon Dioxide 30.0 H (20.0-27.5) mmol/L Anion Gap 8.50 L (10.00-18.00) mmol/L BUN/Creatinine Ratio 22.13 H (12.00-20.00) Ratio Assessment and Plan Assessment: Mechanical Small bowel obstruction in a patient with history of recent diagnostic laparoscopy, laparotomy with lysis of adhesions,appendectomy for a bowel obstruction secondary to perforated appendicitis with peritonitis on 08/09/2022,partial small bowel obstruction 10/26. Status post laparoscopic lysis of adhesions with excision portion of omental adhesion 09/24/2022 Acute renal failure, improving with IV fluid hydration history of left inguinal hernia repair History of Daily alcohol use 2-3 beers daily Prior nicotine dependence History of neck cancer, s/p chemotherapy and radiation Anxiety Hyperlipidemia Plan: Continue on current medication regime ,monitoring and symptomatic treatment.Maintain IV fluid hydration. Pain management. Aggressive pulmonary toileting with incentive spirometer reinforced. The impression and plan of care has been dictated as directed. : I performed a history and examination of this patient, discussed the same with the dictator. I agree with the dictator's note ,documented as a scribe. Any additional findings or plans will be noted.
[2022-09-25] MEDS: HYDROcodone/APAP 5-325MG 1 EACH TAB PO PRN ×2 (16:32→20:26)
[2022-09-25] MEDS: LACTATED RINGERS 1,000 ML IV SCH (16:35)
[2022-09-26] MEDS: HYDROmorphone 0.5 MG/0.5 ML SYRINGE IVP PRN ×3 (00:37→20:17)
[2022-09-26] MEDS: HEPARIN SODIUM,PORCINE/PF 5,000 UNIT/0.5 ML SYRINGE SQ SCH ×3 (00:37→16:59)
[2022-09-26] MEDS: SODIUM CHLORIDE 0.9% 1,000 ML IV SCH (05:41)
[2022-09-26] MEDS: PANTOPRAZOLE 40 MG/10 ML VIAL IVP SCH (09:52)
--- NOTE | 2022-09-26 10:50 | P.PN ---
Subjective Progress Note Date: 09/26/22 CHIEF COMPLAINT: Small bowel obstruction HISTORY OF PRESENT ILLNESS: Patient is POD#2 status post laparoscopic lysis of adhesions with excision portion of omental adhesion for small bowel obstruction secondary to intra-abdominal adhesions. Patient reporting improvement in his abdominal pain. He denies any nausea or vomiting. He is having flatus. PHYSICAL EXAM: VITAL SIGNS: Reviewed. GENERAL: Well-developed in no acute distress. HEENT: No sclera icterus. Extraocular movements grossly intact. Moist buccal mucosa. Head is atraumatic, normocephalic. ABDOMEN: Soft. Nondistended. Incision sites clean dry and intact NEUROLOGIC: Alert and oriented. Cranial nerves II through XII grossly intact. ASSESSMENT: 1. Small bowel obstruction status post laparoscopic lysis of adhesions with excision portion of omental adhesion PLAN: -Advance diet to full liquids -Discontinue IV fluid -Encouraged patient to ambulate -Encouraged incentive spirometer use -GI prophylaxis Protonix and DVT prophylaxis subcu heparin Physician Skiing Teacher note has been reviewed by physician. Signing provider agrees with the documented findings, assessment, and plan of care. I have personally seen and examined the patient, reviewed the SWITCH TENDER /PAs history, exam and MDM and agree with the assessment and plan as written. Based on total visit time, I have performed more than 50% of the visit. As above: Patient doing well today. Passing flatus. No nausea or vomiting. Less bloated on exam. Continue slowly advancing diet. Possible discharge later tomorrow or Friday. Objective - Vital Signs Vital signs: Vital Signs Temp 98.2 F 09/26/22 07:42 Pulse 70 09/26/22 08:45 Resp 16 09/26/22 08:45 BP 151/76 09/26/22 07:42 Pulse Ox 95 09/26/22 07:42 FiO2 Intake & Output 09/25/22 09/26/22 09/26/22 18:59 06:59 18:59 Intake Total 1200 120 Balance 1200 120 Intake: Intake, IV Titration 1200 Amount Sodium Chloride 0.9% 1, 1200 000 ml @ 100 mls/hr IV . Q10H PO Rx#:[id number] Oral 120 Other: Voiding Method Toilet Toilet Toilet # Voids 2 - Labs CBC & Chem 7: 09/25/22 07:26 09/25/22 07:26 Labs: Abnormal Lab Results - Last 24 Hours (Table) 09/25/22 Range/Units 07:26 Carbon Dioxide 29.1 H (20.0-27.5) mmol/L Glucose 111 H (70-110) mg/dL
--- NOTE | 2022-09-26 11:39 | P.PN ---
Subjective Progress Note Date: 09/26/22 - History of Present Illness 09/23/22 This is a 72-year-old gentleman with past medical history of recent diagnostic laparoscopy, laparotomy with lysis of adhesions and appendectomy for a bowel obstruction secondary to perforated appendicitis with peritonitis on 08/09/2022, left inguinal hernia repair, partial small bowel obstruction with possible ileus 10/26, prior nicotine dependence presented to the ER with upper abdominal pain, distention accompanied by nausea and vomiting, worsening since Friday. Reports loose stool yesterday, none today. Denies flatus.Abdominal/pelvisCT reporting multiple dilated small bowel loops with fluid levels consistent with mechanical small bowel obstruction. Transition point not seen, dilation increased compared to prior exam.Afebrile, WBC 10.8, lactic acid 1.3, hemoglobin 14.3, platelets 301, INR 1. Electrolytes within normal limits, renal function improved with IV fluid hydration, BUN 36, creatinine decreased to 1.01 from 1.65. LFTs/lipase within normal limits.VSS. NPO. 09/24/2022 NPO, surgery pending. Labs pending. 09/25/2022 status post laparoscopic lysis of adhesions with excision portion of omental adhesion, postop day #1. Tolerated procedure well. No further nausea since last night.Positive flatus. Pain currently controlled. Denies chest pain, palpitations or shortness of breath. Maintaining O2 sats in the low to mid 90s on room air. T-max 99.3, WBC 5.42. Hemoglobin 11.8, platelets 277. 09/26/2022 time a clear liquid diet. Denies nausea vomiting or diarrhea. Positive flatus. Abdominal pain and continues to improve. Diet has been advanced to full liquids for lunch as per surgery. Afebrile, T-max 99.3, WBC within normal limits. Renal function stable, BUN 9.6, creatinine 0.8. Bicarb 29.1 Objective - Vital Signs Vital signs: Vital Signs Temp 98.2 F 09/26/22 07:42 Pulse 70 09/26/22 08:45 Resp 16 09/26/22 08:45 BP 151/76 09/26/22 07:42 Pulse Ox 95 09/26/22 07:42 FiO2 Intake & Output 09/25/22 09/26/22 09/26/22 18:59 06:59 18:59 Intake Total 1200 120 Balance 1200 120 Intake: Intake, IV Titration 1200 Amount Sodium Chloride 0.9% 1, 1200 000 ml @ 100 mls/hr IV . Q10H [facility] Rx#:[id number] Oral 120 Other: Voiding Method Toilet Toilet Toilet # Voids 2 - Exam VS: As above GENERAL: Alert and oriented 3, sitting up in bed,NAD HEAD: Atraumatic, normocephalic. HEENT: Normocephalic, atraumatic ,Pupils equal round and reactive to light,sclera anicteric, conjunctiva normal.MMM. NECK: supple, no JVD LUNGS: Nonlabored, CTA, bilateral bases diminished. HEART: Regular rate and rhythm without murmurs, rubs or gallops.S1,S2 Normal ABDOMEN: Soft, status post surgery, No guarding. Positive bowel sounds. EXTREMITIES: Normal range of motion, no pitting or edema. No clubbing or cyanosis. NEUROLOGICAL: Cranial nerves II through XII grossly intact. No focal deficits. SKIN: Warm, Dry, no rashes noted. - Labs CBC & Chem 7: 09/25/22 07:26 09/25/22 07:26 Assessment and Plan Assessment: Mechanical Small bowel obstruction in a patient with history of recent diagnostic laparoscopy, laparotomy with lysis of adhesions,appendectomy for a bowel obstruction secondary to perforated appendicitis with peritonitis on 08/09/2022,partial small bowel obstruction 10/26. Status post laparoscopic lysis of adhesions with excision portion of omental adhesion 09/24/2022 Acute renal failure, improving with IV fluid hydration history of left inguinal hernia repair History of Daily alcohol use 2-3 beers daily Prior nicotine dependence History of neck cancer, s/p chemotherapy and radiation Anxiety Hyperlipidemia Plan: Continue on current medication regime ,monitoring and symptomatic treatment. Maintain aggressive pulmonary toileting with incentive spirometer reinforced. Increase ambulation as tolerated. Diet advancement and pain management as per general surgery. The impression and plan of care has been dictated as directed. : I performed a history and examination of this patient, discussed the same with the dictator. I agree with the dictator's note ,documented as a scribe. Any additional findings or plans will be noted.
[2022-09-26] MEDS: LACTATED RINGERS 1,000 ML IV SCH (12:45)
[2022-09-27] MEDS: HEPARIN SODIUM,PORCINE/PF 5,000 UNIT/0.5 ML SYRINGE SQ SCH ×2 (00:24→07:20)
[2022-09-27 02:58] VITALS: PULSE 73
[2022-09-27 07:30] VITALS: BP 166/77; RESP 17; TEMP 98.3
[2022-09-27] MEDS: PANTOPRAZOLE 40 MG/10 ML VIAL IVP SCH (09:37)
--- NOTE | 2022-09-27 11:30 | P.DS ---
Providers Date of admission: 09/22/22 20:07 Expected date of discharge: 09/27/22 Attending physician: Jeramie Velazquez Consults: 09/23/22 11:09 Consult Physician Routine Consulting Provider: Kartik Rosa Consult Reason/Comments: medical management Do you want consulting provider notified?: Yes Primary care physician: Kartik Rosa Hospital Course: Discharge diagnoses 1. Small bowel obstruction status post laparoscopic lysis of adhesions with excision portion of omental adhesion Hospital course This is a 72-year-old male who presented to hospital with complaints of upper abdominal pain with nausea and vomiting and abdominal distention. He had a computed tomography scan completed that shows multiple dilated small bowel loops with fluid levels consistent with mechanical small bowel obstruction. Transition point not seen. Dilation increased compared to old exam. No free air. Patient is status post laparoscopic lysis of adhesions with excision portion of omental adhesion. Patient is having bowel movements. Tolerating diet. Pain is controlled. Has been up and ambulating. He is afebrile. Incision sites clean dry and intact. He is stable for discharge. Please refer to chart for any further details. Physician Manager Mining note has been reviewed by physician. Signing provider agrees with the documented findings, assessment, and plan of care. Patient Condition at Discharge: Stable Plan - Discharge Summary Discharge Rx Participant: No New Discharge Prescriptions: New HYDROcodone/APAP 5-325MG [[place] 5-325] 1 tab PO Q6HR PRN 3 Days #12 tab PRN Reason: Pain Continue Escitalopram [Lexapro] 10 mg PO HS Discharge Medication List Escitalopram [Lexapro] 10 mg PO HS 10/27/21 [History] HYDROcodone/APAP 5-325MG [[place] 5-325] 1 tab PO Q6HR PRN 3 Days #12 tab 09/27/22 [Rx] Follow up Appointment(s)/Referral(s): Kartik Rosa MD [Primary Care Provider] - 1-2 days Jeramie Velazquez MD [Medical Doctor] - 1 Week Activity/Diet/Wound Care/Special Instructions: No driving while taking [place] No lifting over 10 pounds You may shower. No soaking or tub baths for 2 weeks Very light activity until you are reevaluated at your follow up appointment with your surgeon Discharge Disposition: HOME SELF-CARE
[2022-09-27 13:32] VITALS: BMI 22.4
== END 2022-09-27 14:39 | disposition home or self-care (01) | DRG 336 ==
LOC: EC 17:47 → 4SSUR 20:07 → 5NMEDONC 09-23 02:00
PROVIDERS: ADMIT Surgery; ATTEND Surgery
PROC: 0D9670Z Drainage of Stomach with Drainage Device, Via Natural or Artificial Opening (ICD-10-PCS; 2022-09-22)
PROC: 0DN84ZZ Release Small Intestine, Percutaneous Endoscopic Approach (ICD-10-PCS; principal; 2022-09-24 15:30)
PROC: 0DBU4ZZ Excision of Omentum, Percutaneous Endoscopic Approach (ICD-10-PCS; principal; 2022-09-24 15:30)
DX: K56.51 Intestinal adhesions [bands], with partial obstruction (principal); N17.9 Acute kidney failure, unspecified; Z28.310 Unvaccinated for COVID-19; E78.5 Hyperlipidemia, unspecified; I10 Essential (primary) hypertension; F41.9 Anxiety disorder, unspecified; F10.90 Alcohol use, unspecified, uncomplicated; Z79.899 Other long term (current) drug therapy; Z87.891 Personal history of nicotine dependence; Z92.21 Personal history of antineoplastic chemotherapy; Z92.3 Personal history of irradiation; Z85.89 Personal history of malignant neoplasm of other organs and systems; Z71.3 Dietary counseling and surveillance; Z88.0 Allergy status to penicillin
CPT/HCPCS: 36415; 71045; 74176; 80048; 80053; 82150; 83605; 83690; 85025; 85610; 85730; 86850; 86900; 86901; 88305; 96361; 96374; 96375; 99285

== ENCOUNTER → 2023-08-14 | Outpatient (CLI) | payer MEDICARE ==
[2023-08-14 14:59] LABS: African American GFR (CKD) >90 (>60 ml/min/1.73 sqM); Blood Urea Nitrogen 29 mg/dL (9-20); Non-African American GFR(CKD) 78 (>60 ml/min/1.73 sqM)
--- NOTE | 2023-08-14 17:03 | CT ---
EXAMINATION TYPE: CT abdomen pelvis w con CT DLP: 563.0 mGycm, Automated exposure control for dose reduction was used. DATE OF EXAM: 08/14/2023 4:12 PM COMPARISON: CT abdomen pelvis most recent from 09/22/2022 dating back to 10/27/2021. 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 TECHNIQUE: Axial CT abdomen pelvis w con;Sagittal and coronal reformats were created on a separate w orkstation. Contrast used:100 ml mL of Isovue 300 with IV Contrast, (none if empty) Oral contrast used: with Oral Contrast (none if empty) FINDINGS: LOWER CHEST: 5 mm right lower lobe pulmonary nodule series 3 image 2. ABDOMEN LIVER: Unremarkable GALLBLADDER AND BILE DUCTS: Unremarkable. PANCREAS: Unremarkable. SPLEEN: Unremarkable. ADRENAL GLANDS: Unremarkable. KIDNEYS AND URETERS: No evidence of hydronephrosis or renal calculus. The ureters are unremarkable. PELVIS BLADDER: Unremarkable REPRODUCTIVE: Prostate is enlarged in size measuring 4.8 cm in transverse dimension. ABDOMEN & PELVIS STOMACH AND BOWEL: No evidence of bowel obstruction. Scattered colonic diverticula. PERITONEUM/RETROPERITONEUM: No evidence of pneumoperitoneum or free fluid. VASCULATURE: No evidence of aortic aneurysm. MUSCULOSKELETAL: No acute osseous abnormalities LYMPH NODES: No gross evidence for lymphadenopathy. SOFT TISSUE/ABDOMINAL WALL: Unremarkable IMPRESSION: 1. No evidence for lymphadenopathy to suggest malignancy. 2. Colonic diverticulosis. 3. Right lower lobe pulmonary nodule measuring 5 mm is stable from prior 09/22/2022 and dating back t o 10/24/2021.
== END | disposition home or self-care (01) ==
LOC: RADCTMAIN 14:00
PROVIDERS: ATTEND Urology
DX: C60.9 Malignant neoplasm of penis, unspecified (principal); K57.30 Diverticulosis of large intestine without perforation or abscess without bleeding
CPT/HCPCS: 82565; 84520; 74177; 36415; Q9967

== ENCOUNTER → 2024-09-08 | Outpatient (CLI) | payer MEDICARE ==
[2024-09-08 15:43] LABS: Basophils # (A) 0.04 X 10*3/uL (0.00-0.10); Basophils % (A) 0.9 %; Eosinophils # (A) 0.51 X 10*3/uL (0.04-0.35); Eosinophils % (A) 11.3 %; HCT 40.2 % (39.6-50.0); HGB 12.9 g/dL (13.0-17.0); Lymphocytes # (A) 1.14 X 10*3/uL (0.90-5.00); Lymphocytes % (A) 25.2 %; MCH 31.7 pg (27.0-32.0); MCHC 32.1 g/dL (32.0-37.0); MCV 98.8 FL (80.0-97.0); Mean Platelet Volume 10.4 FL (9.5-12.2); Monocytes # (A) 0.52 X 10*3/uL (0.20-1.00); Monocytes % (A) 11.5 %; NRBC Per 100 WBC 0 X 10*3/uL (0.00-0.01); Neutrophils % (A) 50.7 %; Platelet Count 261 X 10*3/uL (140-440); RBC 4.07 X 10*6/uL (4.40-5.60); WBC 4.53 X 10*3/uL (4.50-10.00)
[2024-09-08 16:12] LABS: ALT 17 U/L (10-49); AST 18 U/L (14-35); Albumin 4.3 g/dL (3.8-4.9); Albumin/Globulin Ratio 1.48 Ratio (1.60-3.17); Alkaline Phosphatase 59 U/L (41-126); BUN/Creat Ratio 16.83 Ratio (12.00-20.00); Blood Urea Nitrogen 20.2 mg/dL (9.0-27.0); Calcium 9.7 mg/dL (8.7-10.3); Carbon Dioxide 30.7 mmol/L (21.6-31.8); Chloride 102 mmol/L (96-109); Chol/HDL Ratio 2.84 Ratio; Globulin 2.9 g/dL (1.6-3.3); Glucose 103 mg/dL (70-110); LDL Cholesterol,Calculated 134.7 mg/dL (0.0-131.0); Potassium 5.3 mmol/L (3.5-5.5); Prostate Specific Antigen 1.62 ng/mL (0.000-6.500); Sodium 141 mmol/L (135-145); Total Bilirubin 0.5 mg/dL (0.3-1.2); Total Protein 7.2 g/dL (6.2-8.2); VLDL Calculation 11.24 mg/dL (5.00-40.00)
[2024-09-08 18:26] LABS: Appearance,Urine Clear (Clear); Bilirubin,Urine Negative (Negative); Blood,Urine Negative (Negative); Color,Urine Yellow (Yellow); Ketones,Urine Negative (Negative); Nitrite,Urine Negative (Negative); PH, Urine 6.5; Specific Gravity,Urine 1.018 (1.001-1.030); Urobilinogen,Urine 0.2 E.U./DL
[2024-09-08 18:36] LABS: Bacteria,Urine None Seen (None Seen)
== END | disposition home or self-care (01) ==
LOC: LABWHC1 08:31
PROVIDERS: ATTEND Family Medicine
DX: Z00.01 Encounter for general adult medical examination with abnormal findings (principal); Z12.5 Encounter for screening for malignant neoplasm of prostate; E78.00 Pure hypercholesterolemia, unspecified
CPT/HCPCS: 36415; 80053; 80061; 81001; 82306; 84153; 84443; 85025

== ENCOUNTER → 2024-10-14 | Outpatient (CLI) | payer MEDICARE ==
[2024-10-14 12:20] LABS: African American GFR (CKD) 66 (>60 ml/min/1.73 sqM); Blood Urea Nitrogen 29 mg/dL (9-20); Non-African American GFR(CKD) 57 (>60 ml/min/1.73 sqM)
--- NOTE | 2024-10-14 13:25 | CT ---
CT thorax with contrast HISTORY: Unspecified cord compression and nodules. COMPARISON: None. TECHNIQUE: Multiple axial images are obtained through the thorax following IV contrast administration . FINDINGS: There is a 4 mm right upper lobe pulmonary nodule. There is a 6.4 mm right lower lobe pulmonary nodul e. There is a 5.5 mm groundglass nodule in the right lower lobe. This is 6.4 mm juxtapleural fissural node on the right. There are no left lung pulmonary nodules. No airspace consolidation. There is no abnormal interstitial density. There is no pleural effusion or pneumothorax. The heart and great vessels the chest are normal in size. There is no mediastinal, hilar or axillary adenopathy. Limited scanning through the upper abdomen reveals no gross abnormality. There are no focal osseous lesions. IMPRESSION: 1. Multiple right lung pulmonary nodules largest of which are 6.4 cm. Follow-up CT thorax in 6 months is recommended to confirm stability. 2. No acute cardiopulmonary disease. There is no pleural effusion, pleural thickening or pneumothorax. The great vessels the chest are normal with no mediastinal, hilar or axillary adenopathy. There is no pulmonary embolus. There is again to the upper abdomen reveals no gross abnormality. No focal osseous lesions are seen. IMPRESSION: 1. No acute cardiopulmonary disease. 2. No CT evidence of interstitial lung disease. 3. No significant abnormality seen. [facility], Workstation: SAMMY 10/14/2024 1:23 PM
== END | disposition home or self-care (01) ==
LOC: RADCTMAIN 11:41
PROVIDERS: ATTEND Family Medicine
DX: R91.8 Other nonspecific abnormal finding of lung field (principal)
CPT/HCPCS: 82565; 84520; 71260; 36415; Q9967